=== PATIENT | female | born 1970 | race African-American/Black ===

== ENCOUNTER 2017-01-16 20:19 | Emergency (ER) | payer OTHER, MEDICAID ==
--- NOTE | 2017-01-16 23:01 | ER Document Report ---
ED General - General Chief Complaint: Psych Problem Stated Complaint: PSYCH EVAL Time Seen by Provider: 01/16/17 22:01 Notes: Patient is a 46-year-old female who presents with complaint of being on involuntary commitment paperwork. According to involuntary commitment paperwork she was evaluated by mobile crisis. She was agitated and made threats told mobile crisis and her daughter. Patient says that she takes her medications when she feels that it is necessary. She says she does this to stretch them out so she does not have to get them refilled as often. She currently is not agitated. She currently admits that she got frustrated. She said she was frustrated because she felt she was having to tell the same story over and over again. She denies being suicidal or homicidal. TRAVEL OUTSIDE OF THE [place] IN LAST 30 DAYS: No - Related Data Allergies/Adverse Reactions: morphine Adverse Reaction (Verified 01/17/17 00:30) Hallucinations Past Medical History - Social History Smoking Status: Never Smoker Frequency of alcohol use: None Drug Abuse: None Family History: Reviewed & Not Pertinent Patient has suicidal ideation: Yes Patient has homicidal ideation: Yes Renal/ Medical History: Denies: Hx Peritoneal Dialysis Psychiatric Medical History: Reports: Hx Bipolar Disorder, Hx Depression, Hx Schizophrenia Past Surgical History: Reports: Hx Tubal Ligation - Immunizations Hx Diphtheria, Pertussis, Tetanus Vaccination: No Review of Systems - Review of Systems Notes: My Normal Review Basic REVIEW OF SYSTEMS: CONSTITUTIONAL : Denies fever, chills, or sweats. Denies recent illness. EENT: Denies eye, ear, throat, or mouth pain or symptoms. Denies nasal or sinus congestion. RESPIRATORY: Denies cough, cold, or chest congestion. Denies shortness of breath, difficulty breathing, or wheezing. MUSCULOSKELETAL: Denies neck or back pain or joint pain or swelling. SKIN: Denies rash or skin lesions. NEUROLOGICAL: Denies altered mental status or loss of consciousness. Denies headache. Denies weakness or paralysis or loss of use of either side. Denies problems with gait or speech. Denies sensory or motor loss. PSYCHIATRIC: agitation and verbal aggression. ALL OTHER SYSTEMS REVIEWED AND NEGATIVE. Physical Exam - Vital signs Vitals: Temp Pulse Resp BP Pulse Ox 98.8 F 95 20 139/74 H 100 01/16/17 20:23 01/16/17 20:23 01/16/17 20:23 01/16/17 20:23 01/16/17 20:23 - Notes Notes: General Appearance: Well nourished, alert, cooperative, no acute distress, no obvious discomfort. Vitals: reviewed, See vital signs table. Head: no swelling or tenderness to the head Eyes: PERRL, EOMI, Conjuctiva clear Mouth: No decreasd moisture Lungs: No wheezing, No rales, No rhonci, No accessory muscle use, good air exchange bilaterally. Heart: Normal rate, Regular rythm, No murmur, no rub Abdomen: Normal BS, soft, No rigidity, No abdominal tenderness, No guarding, no rebound, no abdominal masses, no organomegaly Extremities: strength 5/5 in all extremities, good pulses in all extremities, no swelling or tenderness in the extremities, no edema. Skin: warm, dry, appropriate color, no rash Neuro: speech clear, oriented x 3, normal affect, responds appropriately to questions. Psych: currently calm. Course - Vital Signs Vital signs: Temp Pulse Resp BP Pulse Ox 97.9 F 78 15 112/74 99 01/17/17 04:11 01/17/17 04:11 01/17/17 04:11 01/17/17 04:11 01/17/17 04:11 - Laboratory Result Diagrams: 01/16/17 23:05 01/16/17 23:05 Laboratory results interpreted by me: 01/16/17 01/16/17 23:05 23:05 Seg Neutrophils % 41.1 L Lymphocytes % 51.0 H Carbon Dioxide 20 L Total Protein 6.1 L Salicylates < 1.0 L Acetaminophen < 10 L - EKG Interpretation by Me Additional EKG results interpreted by me: 01/16/17 23:11 EKG is reviewed and interpreted by me. EKG shows normal sinus rhythm with a rate of [address] segment elevation or depression. No ischemic T-wave inversions. No interval is slightly prolonged. QRS duration and QT intervals are within normal range. Old EKG for comparison is from May 08, 2016. - Transfer of Care Notes: 01/16/17 23:00 01/17/17 05:21 Patient is medically stable for psychiatric evaluation and placement. Patient is on involuntary commitment paperwork was filled out by the mobile crisis underwriting service representative. Discharge - Discharge Clinical Impression: Agitation Condition: Stable Disposition: PSYCH HOSP/UNIT
[2017-01-16 23:21] LABS: ABSOLUTE EOSINOPHILS # (AUTO) 0.2 10^3/uL (0.0-0.6); ABSOLUTE LYMPHOCYTES (AUTO) 4.2 10^3/uL (0.5-4.7); ABSOLUTE MONOCYTES (AUTO) 0.4 10^3/uL (0.1-1.4); ABSOLUTE NEUT (AUTO) 3.4 10^3/uL (1.7-8.2); BASOPHILS % (AUTO) 0.6 % (0-2); HEMATOCRIT 37.7 % (36.0-47.0); HEMOGLOBIN 12.5 g/dL (12.0-15.5); HGB HCT DIFFERENCE -0.2; MEAN CORPUSCULAR HEMOGLOBIN 30.3 pg (27.0-33.4); MEAN CORPUSCULAR HGB CONC 33.2 g/dL (32.0-36.0); MEAN CORPUSCULAR VOLUME 91 fl (80-97); MONOCYTES % (AUTO) 5.3 % (3-13); RED BLOOD COUNT 4.13 10^6/uL (3.72-5.28); RED CELL DISTRIBUTION WIDTH 13.2 % (11.5-14.0); SEGMENTED NEUTROPHILS % (AUTO) 41.1 % (42-78); WHITE BLOOD COUNT 8.2 10^3/uL (4.0-10.5)
[2017-01-16 23:34] LABS: ALANINE AMINOTRANSFERASE 28 U/L (9-52); ALBUMIN 3.9 g/dL (3.5-5.0); ALCOHOL 27 mg/dL (NONE DETECTED); ALKALINE PHOSPHATASE 44 U/L (38-126); ANION GAP 17 (5-19); ASPARTATE AMINO TRANSFERASE 16 U/L (14-36); BILIRUBIN,DIRECT 0.2 mg/dL (0.0-0.4); BILIRUBIN,TOTAL 0.2 mg/dL (0.2-1.3); BLOOD UREA NITROGEN 11 mg/dL (7-20); CALCIUM 9.3 mg/dL (8.4-10.2); CARBON DIOXIDE 20 mmol/L (22-30); CHLORIDE 107 mmol/L (98-107); GLUCOSE 96 mg/dL (75-110); POTASSIUM 3.6 mmol/L (3.6-5.0); SODIUM 143.6 mmol/L (137-145); TOTAL PROTEIN 6.1 g/dL (6.3-8.2)
[2017-01-17] MEDS ORDERED: ZIPRASIDONE MESYLATE INJ/PF 20 MG SDV IM ONE (08:44)
[2017-01-17] MEDS: ZIPRASIDONE HCL 20 MG CAPSULE PO SCH ×3 (09:00→18:32)
[2017-01-17] MEDS: DIVALPROEX SODIUM 500 MG TAB.SR.24H PO SCH ×2 (09:00→18:32)
--- NOTE | 2017-01-17 10:00 | ER Document Report ---
Doctor's Note Notes: 01/17/17 09:57 I have evaluated this pt. this am and she has no c/o at this time She feels all of her needs are being met and her physical exam is normal. She is awaiting disposition per mental health.
[2017-01-17 12:57] LABS: APPEARANCE,URINE CLEAR; BILIRUBIN,URINE NEGATIVE (NEGATIVE); GLUCOSE, URINE NEGATIVE (NEGATIVE); KETONES,URINE NEGATIVE (NEGATIVE); LEUKOCYTE ESTERASE,URINE NEGATIVE (NEGATIVE); NITRITE,URINE NEGATIVE (NEGATIVE); PROTEIN,URINE NEGATIVE (NEGATIVE); URINE SPECIFIC GRAVITY 1.004; UROBILINOGEN,URINE NEGATIVE mg/dL (<2.0)
[2017-01-17 13:17] LABS: URINE BARBITURATES SCREEN NEGATIVE; URINE METHADONE SCREEN NEGATIVE; URINE OPIATES LOW NEGATIVE; URINE PHENCYCLIDINE SCREEN NEGATIVE
--- NOTE | 2017-01-17 13:57 | PSYCHOLOGICAL NOTE ---
Psych Note - Psych Note Psych Note: Patient presents on ivc papers after allegedly getting into an argument with her daughter. Patient was uncooperative out front with triage but is cooperative with me at this time. Patient denies any SI or HI and states that this is all a mistake. Patient states that her daughter has taken over her home. Patient states that she has a diagnosis of bipolar and schizophrenia. She continued disclosed that [facility] getting into an argument with her daughter. She continued to disclose that " the doctor said I have to live alone." She states her daughter moved in on Thursday so noticed an was not invited. She continued to disclose that her daughter brought her grandchild with her she states she is not to be around other people and this is been a problem. She continued to disclose that she is supposed to take Depakote Cogentin however is been having difficulty transferring her Medicaid. She states it has been about a year but never received a card in the mail. Patient states she is never in a bad mood and denies being suicidal or homicidal. He states that it is her daughter that needs a psych evaluation not her. Patient became agitated multiple times during conversation however continue to engage with clinician. Patient stated she wanted something to eat clinician pointed out patient's breakfast sitting next to her. Patient stated the clinician can leave now because she is going to eat and through her napkin at clinician. After clinician left the room patient proceeded to throw all her food tray across the room and reported to [facility] staff that the clinician did it. When clinician asked why the patient threw her food patient stated because cold food was served to her. Patient is alert and orientated to person place time and circumstance. Mood is irritable with labile affect presenting hypomanic. Patient denies suicidal homicidal ideation. Patient denies auditory visual hallucinations; patient is not demonstrating any behavior that is congruent with responding to internal stimuli i.e. good eye contact organized and linear thought process. No delusions are noted. Thought processes organized and linear. Thought content is centered around blaming others. Eye contact was fair. Stool abilities appear to be within average range. Attention and concentration are fair. Insight judgment and impulse control are poor 295.90 (F25.0) schizoaffective bipolar type per history provided by patient Cluster B traits impression\\plan: Patient is recommended to continue under IVC. Patient is demonstrating poor impulse control with aggression. Patient is a danger to others. At this time is believed the patient has been not take prescribed because of the difficulties with transferring his current clinician notes patient mentioned to [facility] staff she was taking her medication every other day to stretch it out. Patient will be reevaluated. Dr. Mcmillan was consulted on the care and management of this patient; attending physician is in agreement with recommendations and disposition.
--- NOTE | 2017-01-17 17:48 | EKG REPORT ---
SEVERITY:- ABNORMAL ECG - SINUS RHYTHM FIRST DEGREE AV BLOCK : Confirmed by: Sharyn Trejo MD 17-Jan-2017 17:47:31
[2017-01-17] MEDS ORDERED: BENZTROPINE MESYLATE 1 MG TABLET PO SCH (22:00)
--- NOTE | 2017-01-18 09:49 | ER Document Report ---
Doctor's Note Notes: 01/18/17 09:49 I have evaluated this patient this am and has no c/o at this time. Feels all of their needs are being met and physical exam is normal. Awaiting dispositon per mental health. 01/18/17 15:30 Pt seen by mental Health and they are recommending outpatient management with follow-up at [facility]. We will provide her with a 7 day course of her prescription. Patient is pleasant and cooperative. No homicidal or suicidal ideation.
[2017-01-18] MEDS: ZIPRASIDONE HCL 20 MG CAPSULE PO SCH ×2 (10:24→14:34)
[2017-01-18] MEDS: DIVALPROEX SODIUM 500 MG TAB.SR.24H PO SCH (10:24)
--- NOTE | 2017-01-18 15:23 | ER Document Report ---
ED Psych Disorder / Suicide - General Information source: Patient, Relative - daughter who is her payee TRAVEL OUTSIDE OF THE [place] IN LAST 30 DAYS: No - HPI Patient complains to provider of: Other - manic Onset: Other Onset was: Gradual Suicide Risk Factors: Bipolar, Frightened friends/family, Lack of social support Situational problems related to: Other - medicaiton noncompliance Normal mood: Yes - slightly elevated, but calmer than initial presentaiton Associated symptoms: Normal affect, Normal mood, Manic Similar symptoms previously: Yes Recently seen / treated by doctor: No <JAMIL MARIE - Last Filed: 01/18/17 15:04> <JULIAN MALDONADO - Last Filed: 01/18/17 15:30> - General Chief Complaint: Psych Problem Stated Complaint: PSYCH EVAL Time Seen by Provider: 01/16/17 22:01 - HPI Notes: Patient is a 46 year old female who is under IVC at [facility]. Patient initially presented manic likely due to medication noncompliance, after an alleged argument with her daughter. There was a small amount of alcohol (27) in her toxicology, as well as subtherapeutic Valproic Acid (35). Patient this morning state she feels better. She states she feels she is slowing down. She states she has no thoughts of wanting to harm herself or anyone else. Patient states she would like to go home and take her medications. Patient's daughter, Yamil Villareal states: Daughter states the patient moved in about a week ago. She states that she has been "going off" about just about anything. Daughter provided numerous examples. She states she is diagnosed with Schizophrenia and Bipolar Disorder. Daughter states that the patient has gone through a lot in the past few months, to include homelessness. She states the patient has been off of her medications minimally since she moved back to [place] from [place] because she still has pills from her 30 day supply from [place]. Daughter states the precipitating incident was the patient calling the police on her because she had a light on in the bathroom. Daughter states the patient was so aggressive when the police arrived she was concerned they were going to treat her as an aggressive person and not an individual with MH issues. Daughter states she sees a pattern with the patient who goes off of her medications, ends up in the hospital, and gets out and does ok for a few days, then purchases some alcohol and repeat cycle. Patient is A&O. Mood is elevated with normal smiling affect. Patient denies suicidal/homicidal ideations, intent, plan, or means. Patient denies A/V H; delusions not noted. Thought processes were organized. Conversational speech was fast. Intellectual abilities were estimated within average range. Attention and focus were fair. Insight, judgment, and impulse control were poor- fair. 295.90 (F25.0) Schizoaffective bipolar type per history provided by patient Cluster B traits Unspecified Alcohol Abuse Patient is psychiatrically cleared and recommended for discharge. Patient is encouraged to take her medications as prescribed. Daughter reports her concerns are strictly related to medications. She states until the patient's medicaid card is "straightened out," (correct dates) and she can fill her prescriptions, she may not be able to financially pay for them. Daughter encouraged to seek out alternative resources, to include her [facility] as her Disability Liaison Officer was just visiting. [employer] has agreed to provide a cab ride home for the patient. Patient no longer meets criteria for IVC as she denies SI/HI, and presents as though she is better able to control her mood and reactions. Patient has been calm and appropriate throughout today, and has engaged in conversation with this clinician, staff, and her Disability Liaison Officer appropriately. I consulted with Dr. Mcmillan in regards to the care and management of this patient. (JAMIL MARIE) - Related Data Allergies/Adverse Reactions: morphine Adverse Reaction (Verified 01/17/17 00:30) Hallucinations Past Medical History - Social History Smoking Status: Never Smoker Chew tobacco use (# tins/day): No Frequency of alcohol use: Occasional Drug Abuse: None Family History: Reviewed & Not Pertinent Patient has suicidal ideation: No Patient has homicidal ideation: No Renal/ Medical History: Denies: Hx Peritoneal Dialysis Psychiatric Medical History: Reports: Hx Bipolar Disorder, Hx Depression, Hx Schizophrenia Past Surgical History: Reports: Hx Tubal Ligation - Immunizations Hx Diphtheria, Pertussis, Tetanus Vaccination: No <JAMIL MARIE - Last Filed: 01/18/17 15:04> Course - Laboratory Result Diagrams: 01/16/17 23:05 01/16/17 23:05 <JAMIL MARIE - Last Filed: 01/18/17 15:04> - Laboratory Result Diagrams: 01/16/17 23:05 01/16/17 23:05 <JULIAN MALDONADO - Last Filed: 01/18/17 15:30> - Vital Signs Vital signs: Temp Pulse Resp BP Pulse Ox 97.5 F 51 L 16 105/64 99 01/18/17 08:05 01/18/17 08:05 01/18/17 08:05 01/18/17 08:05 01/18/17 08:05 - Laboratory Laboratory results interpreted by me: 01/16/17 01/16/17 01/17/17 23:05 23:05 12:09 Seg Neutrophils % 41.1 L Lymphocytes % 51.0 H Carbon Dioxide 20 L Total Protein 6.1 L Salicylates < 1.0 L Acetaminophen < 10 L Valproic Acid 30.5 L Discharge <JAMIL MARIE - Last Filed: 01/18/17 15:04> <JULIAN MALDONADO E - Last Filed: 01/18/17 15:30> - Discharge Clinical Impression: Agitation, Bipolar 1 disorder Schizophrenia Qualifiers: Schizophrenia type: unspecified Qualified Code(s): F20.9 - Schizophrenia, unspecified Condition: Stable Disposition: HOME, SELF-CARE Additional Instructions: Bipolar Disorder Bipolar disorder is also called manic-depressive disorder. Depression alternates with brain hyperactivity called sung. Each phase lasts from several days to a few weeks. We don't know exactly what causes bipolar disorder , but it's treatable. During the "manic phase," you may feel elated and energetic. You may have racing thoughts, rapid speech, increased activity, and grandiose ideas. During this time, you may not realize how poor your judgement is. Inappropriate spending, drug abuse, excessive alcohol use, marriage problems, and irresponsible sexual behavior are common during the manic phase. During the "depressive phase," you might feel depressed, guilty, worthless , fatigued, and unable to concentrate. You might have thoughts of suicide. Good treatments are available for bipolar disorder. Parrott is a classic drug for bipolar disorder, and is still often useful. If the manic phase is very mild, an antidepressant alone can be prescribed. If the manic phase is very severe, an antipsychotic medicine (such as Haldol) may be needed. The treatment must be matched to your symptoms, so it's important to work closely with your psychiatric care provider. Contact your physician, the hospital emergency center, crisis line, or your counsellor if you are losing control or having self-destructive thoughts. Schizophrenia Schizophrenia is a chemical disorder that affects how the brain functions. The exact cause is unknown, but it tends to run in families. It is NOT caused by emotional trauma. Schizophrenia causes disordered thinking, including unusual beliefs and inability to "process" happenings around the patient. Patients with schizophrenia benefit greatly from medicine. These medicines are called antipsychotics. Never stop the medicine without the doctor 's approval. Counselling may help the patient deal with his disease. Schizophrenics require a very ordered environment. Stresses and sudden changes may bring out symptoms. Drugs and alcohol abuse may become problems. Contact the counsellor or crisis line if there are thoughts of suicide or of harming others, or if you become aware of unusual thoughts or beliefs Please follow up with a provider of your choice. Please take your medications as prescribed. You have been provided a list of resources who accept your insurance. Some of the providers, such as [facility] has walk-in options for you to be seen as early as 0900 tomorrow morning. Prescriptions: Benztropine Mesylate [Cogentin 1 mg Tablet] 1 tab PO DAILY #7 tab Divalproex Sodium [Depakote ER 500 mg Tab.sr] 500 mg PO Q12 #14 tab.sr.24h Ziprasidone HCl [Geodon 20 Mg Capsule] 20 mg PO TID #21 capsule Referrals: [facility] [Outside] - Follow up as needed
[2017-01-18 15:55] VITALS: BP 124/82
== END 2017-01-18 16:05 | disposition home or self-care (01) ==
LOC: ER 20:19
DX: R45.1 Restlessness and agitation (principal); F20.9 Schizophrenia, unspecified; F31.9 Bipolar disorder, unspecified; F10.10 Alcohol abuse, uncomplicated; Z88.6 Allergy status to analgesic agent; Z98.51 Tubal ligation status; Z91.14 Patient's other noncompliance with medication regimen
CPT/HCPCS: 93005; 99285; 36415; 80307 ×4; 84703; 85025; 80053; 81001; 80164; 93010; J3490

== ENCOUNTER 2017-01-31 23:06 | Emergency (ER) | payer MEDICAID, OTHER ==
[2017-01-31 23:53] LABS: ABSOLUTE BASOPHILS # (AUTO) 0.1 10^3/uL (0.0-0.2); ABSOLUTE EOSINOPHILS # (AUTO) 0.2 10^3/uL (0.0-0.6); ABSOLUTE LYMPHOCYTES (AUTO) 3.8 10^3/uL (0.5-4.7); ABSOLUTE MONOCYTES (AUTO) 0.5 10^3/uL (0.1-1.4); ABSOLUTE NEUT (AUTO) 2.9 10^3/uL (1.7-8.2); BASOPHILS % (AUTO) 0.9 % (0-2); EOSINOPHILS % (AUTO) 2.8 % (0-6); HEMATOCRIT 41.2 % (36.0-47.0); HEMOGLOBIN 13.8 g/dL (12.0-15.5); HGB HCT DIFFERENCE 0.2; LYMPHOCYTES % (AUTO) 51.4 % (13-45); MEAN CORPUSCULAR HEMOGLOBIN 30.4 pg (27.0-33.4); MEAN CORPUSCULAR HGB CONC 33.5 g/dL (32.0-36.0); MEAN CORPUSCULAR VOLUME 91 fl (80-97); MONOCYTES % (AUTO) 6.4 % (3-13); RED BLOOD COUNT 4.53 10^6/uL (3.72-5.28); RED CELL DISTRIBUTION WIDTH 13.4 % (11.5-14.0); SEGMENTED NEUTROPHILS % (AUTO) 38.5 % (42-78); WHITE BLOOD COUNT 7.4 10^3/uL (4.0-10.5)
[2017-02-01 00:05] LABS: ALANINE AMINOTRANSFERASE 33 U/L (9-52); ALBUMIN 4.4 g/dL (3.5-5.0); ALCOHOL 152 mg/dL (NONE DETECTED); ALKALINE PHOSPHATASE 46 U/L (38-126); ANION GAP 16 (5-19); ASPARTATE AMINO TRANSFERASE 39 U/L (14-36); BILIRUBIN,DIRECT 0.2 mg/dL (0.0-0.4); BILIRUBIN,TOTAL 0.5 mg/dL (0.2-1.3); BLOOD UREA NITROGEN 14 mg/dL (7-20); CALCIUM 8.6 mg/dL (8.4-10.2); CARBON DIOXIDE 25 mmol/L (22-30); CHLORIDE 106 mmol/L (98-107); CREATININE RESULT 0.62 mg/dL (0.52-1.25); GLUCOSE 100 mg/dL (75-110); POTASSIUM 3.7 mmol/L (3.6-5.0); SODIUM 146.7 mmol/L (137-145); TOTAL PROTEIN 7.4 g/dL (6.3-8.2)
[2017-02-01 00:21] LABS: APPEARANCE,URINE CLEAR; BILIRUBIN,URINE NEGATIVE (NEGATIVE); GLUCOSE, URINE NEGATIVE (NEGATIVE); KETONES,URINE NEGATIVE (NEGATIVE); LEUKOCYTE ESTERASE,URINE TRACE (NEGATIVE); NITRITE,URINE NEGATIVE (NEGATIVE); PROTEIN,URINE NEGATIVE (NEGATIVE); URINE SPECIFIC GRAVITY 1.012; UROBILINOGEN,URINE NEGATIVE mg/dL (<2.0)
[2017-02-01 00:34] LABS: URINE BARBITURATES SCREEN NEGATIVE; URINE METHADONE SCREEN NEGATIVE; URINE OPIATES LOW NEGATIVE; URINE PHENCYCLIDINE SCREEN NEGATIVE
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
--- NOTE | 2017-02-01 09:24 | EKG REPORT ---
SEVERITY:- ABNORMAL ECG - SINUS RHYTHM FIRST DEGREE AV BLOCK : Confirmed by: Geoavnna Daniel 01-Feb-2017 09:23:38
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
[2017-02-01 11:43] VITALS: BP 122/74
== END 2017-02-01 11:40 | disposition home or self-care (01) ==
LOC: ER 23:06
DX: R45.851 Suicidal ideations (principal); F31.81 Bipolar II disorder; Z72.811 Adult antisocial behavior; F10.929 Alcohol use, unspecified with intoxication, unspecified; F17.200 Nicotine dependence, unspecified, uncomplicated
CPT/HCPCS: 36415; 80053; 80164; 80307; 81001; 84703; 85025; 93005; 93010; 99284

== ENCOUNTER 2017-08-09 22:58 | Emergency (ER) | payer MEDICAID ==
[2017-08-09] MEDS ORDERED: LORAZEPAM INJ 2 MG/1 ML VIAL IV ONE (23:26)
--- NOTE | 2017-08-09 23:26 | ER Document Report ---
ED General - General Stated Complaint: CHEST PAIN Time Seen by Provider: 08/09/17 23:04 Notes: Patient is a 47 year old female who presents to the ED complaining of chest wall pain and anxiety attack this evening. She states she has been having alot of stress surrounding her family life and has adopted more responsibility with caring for her grandchildren then she was planning for. She states this evening she was upset and when she arrived to he daughters house she had an anxiety attack after hearing news of a sick family member. She does admit to superficial chest pain that is tender to touch and reproducible without trauma. She states that has improved and is positional, 1/5 in severity if at all present. TRAVEL OUTSIDE OF THE [place] IN LAST 30 DAYS: No - Related Data Allergies/Adverse Reactions: morphine Adverse Reaction (Verified 01/31/17 23:18) Hallucinations Past Medical History - Social History Smoking Status: Current Every Day Smoker Family History: Reviewed & Not Pertinent Renal/ Medical History: Denies: Hx Peritoneal Dialysis Psychiatric Medical History: Reports: Hx Bipolar Disorder, Hx Depression, Hx Schizophrenia Past Surgical History: Reports: Hx Tubal Ligation - Immunizations Hx Diphtheria, Pertussis, Tetanus Vaccination: No Review of Systems - Review of Systems Constitutional: No symptoms reported Cardiovascular: See HPI Respiratory: See HPI Gastrointestinal: No symptoms reported Neurological/Psychological: See HPI -: Yes All other systems reviewed and negative Physical Exam - Vital signs Vitals: Temp 98 F 08/09/17 22:58 - Notes Notes: PHYSICAL EXAM GENERAL: Alert, interacts well. NECK: Full range of motion. Supple. Trachea midline. LUNGS: Clear to auscultation bilaterally, no wheezes, rales, or rhonchi. No respiratory distress. HEART: Nonspecific chest wall pain reproducible to palpation regular rate and rhythm. No murmurs, gallops, or rubs. ABDOMEN: Soft, nondistended, nontender. No guarding, rebound, or rigidity.. Bowel sounds present in all 4 quadrants. EXTREMITIES: Moves all 4 extremities spontaneously. No edema, radial and dorsalis pedis pulses 2/4 bilaterally. No cyanosis. NEUROLOGICAL: Alert and oriented x4. Normal speech. PSYCH: Normal affect, normal mood. SKIN: Warm, dry, normal turgor. No rashes or lesions noted. Course - Re-evaluation Re-evalutation: 08/09/17 23:34 Patient is a 47-year-old female who presents with chest wall pain after an anxiety attack earlier this evening. States she is feeling much better now. Patient is very well in appearance, vitals within normal limits. Low clinical suspicion for ACS given clinical history, exam, EKG without ST elevations or depressions, and negative initial troponin. HEART score less than or equal to 3. PE also seems unlikely given clinical history, absence of tachycardia or dyspnea. Well's score of 0. CXR without evidence of pneumothorax or pneumonia. No widened mediastinum. Aortic dissection also seems unlikely given history, symmetric pulses, CXR, and vitals. At this time will discharge with return precautions and follow-up recommendations. Verbal discharge instructions given a the bedside and opportunity for questions given. Medication warnings reviewed. Patient is in agreement with this plan and has verbalized understanding of return precautions and the need for primary care follow-up in the next 24-72 hours. - Vital Signs Vital signs: Temp Pulse Resp BP Pulse Ox 98 F 15 109/60 96 08/09/17 22:58 08/10/17 01:01 08/10/17 01:00 08/10/17 01:01 - Laboratory Result Diagrams: 08/09/17 23:05 08/09/17 23:05 Laboratory results interpreted by me: 08/09/17 08/09/17 23:05 23:05 WBC 11.7 H Carbon Dioxide 17 L Direct Bilirubin 0.5 H - Diagnostic Test Radiology reviewed: Image reviewed, Reports reviewed - EKG Interpretation by Me EKG shows normal: Sinus rhythm Rate: Normal Rhythm: NSR When compared to previous EKG there are: Previous EKG unavailable Discharge - Discharge Clinical Impression: Anxiety, Chest wall pain Condition: Good Disposition: HOME, SELF-CARE Instructions: Chest Wall Pain ([facility]) Additional Instructions: Please take you medications as directed and follow up with a mental health provider listed with this discharge paperwork Prescriptions: Benztropine Mesylate [Cogentin 1 mg Tablet] 1 tab PO DAILY #7 tab Divalproex Sodium [Depakote] 500 mg PO BID #14 tablet. Ziprasidone HCl [Geodon 20 Mg Capsule] 20 mg PO TID #21 capsule Referrals: [facility] [Provider Group] - 08/10/17
[2017-08-09 23:32] LABS: ABSOLUTE EOSINOPHILS # (AUTO) 0.1 10^3/uL (0.0-0.6); ABSOLUTE MONOCYTES (AUTO) 0.5 10^3/uL (0.1-1.4); BASOPHILS % (AUTO) 0.3 % (0-2); EOSINOPHILS % (AUTO) 0.9 % (0-6); HEMATOCRIT 39.6 % (36.0-47.0); HEMOGLOBIN 13.4 g/dL (12.0-15.5); HGB HCT DIFFERENCE 0.6; LYMPHOCYTES % (AUTO) 34.3 % (13-45); MEAN CORPUSCULAR HEMOGLOBIN 30.5 pg (27.0-33.4); MEAN CORPUSCULAR HGB CONC 33.9 g/dL (32.0-36.0); MEAN CORPUSCULAR VOLUME 90 fl (80-97); MONOCYTES % (AUTO) 4.7 % (3-13); RED CELL DISTRIBUTION WIDTH 13.6 % (11.5-14.0); SEGMENTED NEUTROPHILS % (AUTO) 59.8 % (42-78); WHITE BLOOD COUNT 11.7 10^3/uL (4.0-10.5)
[2017-08-09 23:43] LABS: ALANINE AMINOTRANSFERASE 29 U/L (9-52); ALBUMIN 4.5 g/dL (3.5-5.0); ALKALINE PHOSPHATASE 45 U/L (38-126); ANION GAP 16 (5-19); ASPARTATE AMINO TRANSFERASE 21 U/L (14-36); BILIRUBIN,DIRECT 0.5 mg/dL (0.0-0.4); BILIRUBIN,TOTAL 0.6 mg/dL (0.2-1.3); BLOOD UREA NITROGEN 9 mg/dL (7-20); CALCIUM 9.1 mg/dL (8.4-10.2); CARBON DIOXIDE 17 mmol/L (22-30); CHLORIDE 106 mmol/L (98-107); CREATINE KINASE 100 U/L (30-135); CREATININE RESULT 0.55 mg/dL (0.52-1.25); GLUCOSE 95 mg/dL (75-110); POTASSIUM 3.8 mmol/L (3.6-5.0); SODIUM 138.8 mmol/L (137-145); TOTAL PROTEIN 7.3 g/dL (6.3-8.2)
[2017-08-09 23:55] LABS: CREATINE KINASE MB 1.55 ng/mL (<4.55)
[2017-08-10 00:01] LABS: TROPONIN I < 0.012 ng/mL
--- NOTE | 2017-08-10 01:14 | RADIOLOGY REPORT (SQ) ---
EXAM DESCRIPTION: CHEST SINGLE VIEW CLINICAL HISTORY: 47 years, Female, chest pain COMPARISON: 05/08/2016 LIMITATIONS: None. FINDINGS: Adequate lung volumes, clear parenchyma, normal cardiac silhouette, and intact bony thorax. IMPRESSION: Normal chest radiograph. 2011 [facility] [employer]- All Rights Reserved
[2017-08-10 01:20] VITALS: BP 109/60
--- NOTE | 2017-08-10 08:43 | EKG REPORT ---
SEVERITY:- NORMAL ECG - SINUS RHYTHM : Confirmed by: Geovanna Daniel 10-Aug-2017 08:43:01
== END 2017-08-10 01:58 | disposition home or self-care (01) ==
LOC: ER 22:58
DX: F41.9 Anxiety disorder, unspecified (principal); R07.89 Other chest pain; F17.200 Nicotine dependence, unspecified, uncomplicated
CPT/HCPCS: 93005; 99285; 96374; 36415; 82553; 82550; 85025; 80053; 84484; 71010; 93010; J2060

== ENCOUNTER 2017-10-14 00:18 | Emergency (ER) | payer MEDICAID, OTHER ==
[2017-10-14 01:55] LABS: ABSOLUTE EOSINOPHILS # (AUTO) 0.1 10^3/uL (0.0-0.6); ABSOLUTE LYMPHOCYTES (AUTO) 3.7 10^3/uL (0.5-4.7); ABSOLUTE MONOCYTES (AUTO) 0.4 10^3/uL (0.1-1.4); ABSOLUTE NEUT (AUTO) 2.6 10^3/uL (1.7-8.2); BASOPHILS % (AUTO) 0.6 % (0-2); EOSINOPHILS % (AUTO) 1.8 % (0-6); HEMATOCRIT 41.8 % (36.0-47.0); LYMPHOCYTES % (AUTO) 53.7 % (13-45); MEAN CORPUSCULAR HEMOGLOBIN 30.9 pg (27.0-33.4); MEAN CORPUSCULAR HGB CONC 33.6 g/dL (32.0-36.0); MEAN CORPUSCULAR VOLUME 92 fl (80-97); MONOCYTES % (AUTO) 6.2 % (3-13); PLATELET COUNT 175 10^3/uL (150-450); RED BLOOD COUNT 4.55 10^6/uL (3.72-5.28); RED CELL DISTRIBUTION WIDTH 12.9 % (11.5-14.0); SEGMENTED NEUTROPHILS % (AUTO) 37.7 % (42-78); TOTAL CELLS COUNTED % (AUTO) 100 %
[2017-10-14 02:11] LABS: ALANINE AMINOTRANSFERASE 29 U/L (9-52); ALBUMIN 4.6 g/dL (3.5-5.0); ALCOHOL 102 mg/dL (NONE DETECTED); ALKALINE PHOSPHATASE 39 U/L (38-126); ANION GAP 15 (5-19); ASPARTATE AMINO TRANSFERASE 22 U/L (14-36); BILIRUBIN,DIRECT 0.3 mg/dL (0.0-0.4); BILIRUBIN,TOTAL 0.3 mg/dL (0.2-1.3); BLOOD UREA NITROGEN 11 mg/dL (7-20); CARBON DIOXIDE 23 mmol/L (22-30); CHLORIDE 109 mmol/L (98-107); GLUCOSE 102 mg/dL (75-110); POTASSIUM 3.9 mmol/L (3.6-5.0); SODIUM 147.1 mmol/L (137-145); TOTAL PROTEIN 7.4 g/dL (6.3-8.2)
[2017-10-14 02:14] LABS: ACETAMINOPHEN < 10 ug/mL (10-30); SALICYLATE < 1.0 mg/dL (2.0-20.0)
[2017-10-14 02:20] LABS: APPEARANCE,URINE SLIGHTLY-CLOUDY; BILIRUBIN,URINE NEGATIVE (NEGATIVE); COLOR,URINE YELLOW; GLUCOSE, URINE NEGATIVE (NEGATIVE); KETONES,URINE NEGATIVE (NEGATIVE); LEUKOCYTE ESTERASE,URINE NEGATIVE (NEGATIVE); NITRITE,URINE NEGATIVE (NEGATIVE); PROTEIN,URINE NEGATIVE (NEGATIVE); URINE SPECIFIC GRAVITY 1.012; UROBILINOGEN,URINE NEGATIVE mg/dL (<2.0)
[2017-10-14 02:23] LABS: URINE AMPHETAMINES SCREEN NEGATIVE; URINE BARBITURATES SCREEN NEGATIVE; URINE BENZODIAZEPINES SCREEN NEGATIVE; URINE COCAINE SCREEN NEGATIVE; URINE MARIJUANA (THC) SCREEN UNCONFIRMED POSITIVE; URINE METHADONE SCREEN NEGATIVE; URINE PHENCYCLIDINE SCREEN NEGATIVE
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
--- NOTE | 2017-10-14 09:31 | EKG REPORT ---
SEVERITY:- ABNORMAL ECG - SINUS RHYTHM FIRST DEGREE AV BLOCK ABNRM R PROG, CONSIDER ASMI OR LEAD PLACEMENT : Confirmed by: Geovanna Daniel 14-Oct-2017 09:31:02
--- NOTE | 2017-10-14 10:12 | ER Document Report ---
Doctor's Note Notes: 10/14/17 10:11 Patient hemodynamically stable and in no distress at this time. She is medically cleared for discharge. The patient's labs are stable. I discussed case with the psychology team and they have cleared her for discharge for outpatient counseling. 10/14/17 10:12
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
[2017-10-14 11:08] VITALS: BP 131/72
== END 2017-10-14 11:07 | disposition home or self-care (01) ==
LOC: ER 00:18
DX: F25.0 Schizoaffective disorder, bipolar type (principal); F10.10 Alcohol abuse, uncomplicated; R45.851 Suicidal ideations; R45.850 Homicidal ideations; Z98.51 Tubal ligation status; Z88.6 Allergy status to analgesic agent
CPT/HCPCS: 36415; 80053; 80307; 81001; 84703; 85025; 93005; 93010; 99285

== ENCOUNTER 2019-01-23 19:54 | Observation (INO) | payer MEDICAID, OTHER ==
--- NOTE | 2019-01-23 20:41 | ER Document Report ---
ED Cardiac - General Chief Complaint: Chest Pain Stated Complaint: CHEST PAINS Time Seen by Provider: 01/23/19 20:09 Mode of Arrival: Medic Information source: Patient TRAVEL OUTSIDE OF THE [place] IN LAST 30 DAYS: No - HPI Notes: Patient is a 48-year-old female with a history of bipolar and schizophrenia who presents to the emergency today with a chief complaint of chest pain. Patient states that around 1500 this afternoon she developed a sudden onset of midsternal chest pain while she was cleaning. Patient states that she was mopping her floors. Patient states the pain was non radiating and felt like a tingling sharp pain. Patient states at that time the chest pain developed she did feel short of breath. Patient states that this did last around 3 hours in duration. Patient states that she has been extremely stressed and that she was left to babysit 2 children today including an . Patient states she has told her family members she is not allowed to babysit due to her mental illness, despite this, they left the children with her. Patient states that at the time of the chest pain she was upset and yelling at the kids. Patient states as she raised her voice and yelled this made the chest pain worse. Patient reports she has also had a clear productive cough over the past week. Denies fever. Patient did receive 324 of aspirin and 3 sublingual nitros with EMS. Patient states that did help with her discomfort. She denies dizziness or feeling of passing out. - Related Data Allergies/Adverse Reactions: morphine Adverse Reaction (Verified 01/31/17 23:18) Hallucinations Past Medical History - General Information source: Patient - Social History Smoking Status: Current Every Day Smoker Cigarette use (# per day): Yes - 1 ppd Chew tobacco use (# tins/day): No Smoking Education Provided: Yes Frequency of alcohol use: Social Drug Abuse: None Lives with: Family Family History: Reviewed & Not Pertinent Patient has suicidal ideation: No Patient has homicidal ideation: No - Medical History Medical History: Negative - Past Medical History Cardiac Medical History: Reports: None Pulmonary Medical History: Reports: None EENT Medical History: Reports: None Neurological Medical History: Reports: None Endocrine Medical History: Reports: None Renal/ Medical History: Reports: None. Denies: Hx Peritoneal Dialysis Malignancy Medical History: Reports: None GI Medical History: Reports: None Musculoskeletal Medical History: Reports None Skin Medical History: Reports None Psychiatric Medical History: Reports: Hx Bipolar Disorder, Hx Depression, Hx Schizophrenia Traumatic Medical History: Reports: None Infectious Medical History: Reports: None Surgical Hx: Negative Past Surgical History: Reports: None, Hx Tubal Ligation - Immunizations Hx Diphtheria, Pertussis, Tetanus Vaccination: No Review of Systems - Review of Systems Constitutional: No symptoms reported EENT: No symptoms reported Cardiovascular: See HPI Respiratory: See HPI Gastrointestinal: No symptoms reported Genitourinary: No symptoms reported Female Genitourinary: No symptoms reported Musculoskeletal: No symptoms reported Skin: No symptoms reported Hematologic/Lymphatic: No symptoms reported Neurological/Psychological: No symptoms reported Physical Exam - Vital signs Vitals: Resp Pulse Ox 15 99 01/23/19 20:00 01/23/19 20:00 - Notes Notes: GENERAL: Well-appearing, well-nourished and in no acute distress. HEAD: Atraumatic, normocephalic. EYES: Pupils equal round and reactive to light, extraocular movements intact, sclera anicteric, conjunctiva are normal. ENT: Moist mucous membranes. NECK: Normal range of motion, supple without lymphadenopathy or JVD. LUNGS: Breath sounds clear to auscultation bilaterally and equal. No wheezes rales or rhonchi. HEART: Regular rate and rhythm without murmurs, rubs or gallops. ABDOMEN: Soft, nontender, normoactive bowel sounds. No guarding, no rebound. No masses appreciated. EXTREMITIES: Normal range of motion, no pitting or edema. No clubbing or cyanosis. NEUROLOGICAL: Cranial nerves II through XII grossly intact. Normal speech, normal gait. PSYCH: Normal mood, normal affect. SKIN: Warm, Dry, normal turgor, no rashes or lesions noted. Course - Re-evaluation Re-evalutation: 01/23/19 20:45 Upon initial assessment patient is resting comfortably on stretcher and in no acute distress. Patient originally had stated her chest pain is now gone but at the end evaluation she states "well maybe I still have some discomfort," rating it a 3 out of 5. Will obtain chest pain work-up and reevaluate. Chest pain is atypical. Heart score 2. 01/23/19 21:33 Her potassium level was found to be 2.6. Reassessing patient she states that she has had 5-6 episodes of diarrhea per day for the past month. Patient states she has been drinking an adequate amount of fluid. Patient denies abdominal pain. 01/23/19 21:55 Patient's case discussed with Dr. Sotelo my attending physician who agrees with the replacement of potassium as well as magnesium and consult for admission. She does have a borderline prolonged QT interval at 488. Will consult for adm ission. 01/23/19 22:02 Discussed patient case with Dr. Sims who will admit for observation. Patient made aware and is in agreement with staying in the hospital. - Vital Signs Vital signs: Temp Pulse Resp BP Pulse Ox 98.2 F 16 124/79 99 01/23/19 20:08 01/23/19 21:12 01/23/19 20:03 01/23/19 21:12 - Laboratory Result Diagrams: 01/23/19 20:04 01/23/19 20:04 Laboratory results interpreted by me: 01/23/19 20:04 Potassium 2.6 L* Carbon Dioxide 19 L BUN 5 L - EKG Interpretation by Me Additional EKG results interpreted by me: 01/23/19 EKG shows a tachycardia with a rate of 101. Patient has a normal axis deviation. Patient's QTC is slightly prolonged at 488. There are no ST segment changes in consecutive leads or T wave inversions. Discharge - Discharge Clinical Impression: Hypokalemia Diarrhea Qualifiers: Diarrhea type: unspecified type Qualified Code(s): R19.7 - Diarrhea, unspecified Chest pain Qualifiers: Chest pain type: unspecified Qualified Code(s): R07.9 - Chest pain, unspecified Condition: Stable Disposition: ADMITTED OBSERVATION Admitting Provider: Levi (Hospitalist) Unit Admitted: Telemetry
[2019-01-23 20:49] LABS: ABSOLUTE LYMPHOCYTES (AUTO) 2.9 10^3/uL (0.5-4.7); ABSOLUTE MONOCYTES (AUTO) 0.4 10^3/uL (0.1-1.4); ABSOLUTE NEUT (AUTO) 3.5 10^3/uL (1.7-8.2); BASOPHILS % (AUTO) 0.4 % (0-2); EOSINOPHILS % (AUTO) 0.6 % (0-6); HEMATOCRIT 44.6 % (36.0-47.0); HEMOGLOBIN 14.9 g/dL (12.0-15.5); LYMPHOCYTES % (AUTO) 42.3 % (13-45); MEAN CORPUSCULAR HEMOGLOBIN 30.2 pg (27.0-33.4); MEAN CORPUSCULAR HGB CONC 33.4 g/dL (32.0-36.0); MEAN CORPUSCULAR VOLUME 91 fl (80-97); MONOCYTES % (AUTO) 5.7 % (3-13); PLATELET COUNT 183 10^3/uL (150-450); RED BLOOD COUNT 4.93 10^6/uL (3.72-5.28); RED CELL DISTRIBUTION WIDTH 13.8 % (11.5-14.0); TOTAL CELLS COUNTED % (AUTO) 100 %; WHITE BLOOD COUNT 6.8 10^3/uL (4.0-10.5)
[2019-01-23 21:14] LABS: ALANINE AMINOTRANSFERASE 31 U/L (9-52); ALBUMIN 4.9 g/dL (3.5-5.0); ALKALINE PHOSPHATASE 72 U/L (38-126); ANION GAP 19 (5-19); ASPARTATE AMINO TRANSFERASE 28 U/L (14-36); BILIRUBIN,DIRECT 0.4 mg/dL (0.0-0.4); BILIRUBIN,TOTAL 0.4 mg/dL (0.2-1.3); BLOOD UREA NITROGEN 5 mg/dL (7-20); CALCIUM 10.2 mg/dL (8.4-10.2); CARBON DIOXIDE 19 mmol/L (22-30); CHLORIDE 103 mmol/L (98-107); GLUCOSE 101 mg/dL (75-110); TOTAL PROTEIN 7.8 g/dL (6.3-8.2)
[2019-01-23 21:24] LABS: POTASSIUM 2.6 mmol/L (3.6-5.0)
--- NOTE | 2019-01-23 21:34 | RADIOLOGY REPORT (SQ) ---
EXAM DESCRIPTION: XR CHEST 1 VIEW COMPLETED DATE/TME: 01/23/2019 20:40 CLINICAL HISTORY: 48 years, Female, shortness of breath, chest pain COMPARISON: None. NUMBER OF VIEWS: TECHNIQUE: LIMITATIONS: None. FINDINGS: No evidence of pulmonary infiltrate or pleural effusion. The heart and mediastinum are unremarkable. Pulmonary vascularity appears normal. IMPRESSION: No acute finding. copyright 2010 [employer]- All Rights Reserved
[2019-01-23] MEDS ORDERED: POTASSIUM CHLORIDE 10 MEQ CAPSULE.ER PO ONE (21:41)
[2019-01-23] MEDS ORDERED: MAG HYDROX/AL HYDROX/SIMETH SUSP 30 ML UDCUP PO PRN (22:04)
[2019-01-23] MEDS ORDERED: ACETAMINOPHEN 325 MG TABLET PO PRN (22:04)
[2019-01-23] MEDS ORDERED: NITROGLYCERIN 0.4 MG/TAB 25 TAB/BOTTLE SL PRN (22:04)
[2019-01-23] MEDS ORDERED: BENZTROPINE MESYLATE 1 MG TABLET PO SCH (22:15)
[2019-01-23] MEDS ORDERED: DIVALPROEX SODIUM 500 MG TAB.SR.24H PO SCH (23:00)
[2019-01-23] MEDS: ATORVASTATIN CALCIUM 40 MG TABLET PO SCH (23:08)
[2019-01-23] MEDS: BENZTROPINE MESYLATE 1 MG TABLET PO SCH (23:08)
[2019-01-23] MEDS: DIVALPROEX SODIUM 500 MG TAB.SR.24H PO SCH (23:08)
[2019-01-23] MEDS: ZIPRASIDONE HCL 20 MG CAPSULE PO SCH (23:08)
[2019-01-23] MEDS: MAGNESIUM SULFATE/D5W 1 GM/100 ML RTUPB IV SCH (23:21)
[2019-01-23] MEDS: POTASSI CL 20 MEQ/50 ML RIDER 20 MEQ/50 ML RTUPB IV SCH (23:21)
[2019-01-24] MEDS ORDERED: POTASSIUM CHLORIDE 10 MEQ CAPSULE.ER PO ONE
--- NOTE | 2019-01-24 00:05 | EKG REPORT ---
SEVERITY:- BORDERLINE ECG - SINUS TACHYCARDIA BORDERLINE PROLONGED QT INTERVAL : Confirmed by: Geovanna Daniel 24-Jan-2019 00:04:42
[2019-01-24] MEDS ORDERED: DIPHENHYDRAMINE HCL 50 MG/ML VIAL ONE (00:07)
[2019-01-24] MEDS ORDERED: LORAZEPAM INJ 2 MG/1 ML VIAL ONE (00:07)
[2019-01-24] MEDS ORDERED: DIPHENHYDRAMINE HCL 50 MG/ML VIAL IV ONE (00:11)
[2019-01-24] MEDS ORDERED: LORAZEPAM INJ 2 MG/1 ML VIAL IV ONE (00:11)
[2019-01-24] MEDS ORDERED: LITHIUM CARBONATE 300 MG CAPSULE ONE (01:26)
[2019-01-24] MEDS: LITHIUM CARBONATE 300 MG CAPSULE PO SCH ×3 (01:28→21:15)
[2019-01-24] MEDS ORDERED: LORAZEPAM INJ 2 MG/1 ML VIAL IV PRN (05:45)
--- NOTE | 2019-01-24 05:45 | PDOC H&P ---
History of Present Illness Admission Date/PCP: 01/23/19 22:09 Patient complains of: Chest pain History of Present Illness: KEESHA BARONE is a 48 year old female with a past medical history of schizophrenia, bipolar and tobacco dependence. She presents to the emergency room with chest pain for which she is only vaguely able to elaborate upon however is extraordinarily agitated and angry. Her her bed and bedside table is organized and is attempting to Quote from the Bible. She states her family is preventing her from getting help and that is why she is here. She feels angry and that she will kill someone. She she denies a targeted victim but admits to having previous homicidal thoughts several years ago requiring inpatient psychiatric hospitalization in [place]. She denies recent change in medication regiment. Immediately after this conversation the patient becomes irate but agrees to treatment. Her work-up reveals a prolonged QT interval she receives Ativan 2 mg IV, Benadryl 50 IV and lithium 600mg resulting in adequate sedation. Past Medical History Pulmonary Medical History: Reports: None EENT Medical History: Reports: None Neurological Medical History: Reports: None Endocrine Medical History: Reports: None Renal/ Medical History: Reports: None Malignancy Medical History: Reports: None GI Medical History: Reports: None Musculoskeltal Medical History: Reports: None Skin Medical History: Reports: None Psychiatric Medical History: Reports: Bipolar Disorder, Depression, Schizoaffective Disorder, Tobacco Dependency Traumatic Medical History: Reports: None Infectious Medical History: Reports: None Past Surgical History Past Surgical History: Reports: Tubal Ligation Social History Information Source: Patient Lives with: Family Smoking Status: Current Every Day Smoker Frequency of Alcohol Use: None Hx Recreational Drug Use: No Drugs: None Hx Prescription Drug Abuse: No - Advance Directive Resuscitation Status: Full Code Family History Family History: Hypertension Parental Family History Reviewed: Yes Children Family History Reviewed: Yes Sibling(s) Family History Reviewed.: Yes Medication/Allergy Home Medications: Benztropine Mesylate [Cogentin 1 mg Tablet] 1 mg PO QHS 05/12/16 Divalproex Sodium [Depakote] 500 mg PO BID 05/12/16 Ziprasidone HCl [Geodon 20 mg Capsule] 20 mg PO TID 05/12/16 Benztropine Mesylate [Cogentin 1 mg Tablet] 1 tab PO DAILY #7 tab 01/18/17 Divalproex Sodium [Depakote ER 500 mg Tab.sr] 500 mg PO Q12 #14 tab.sr.24h 01/18/17 Ziprasidone HCl [Geodon 20 Mg Capsule] 20 mg PO TID #21 capsule 01/18/17 Benztropine Mesylate [Cogentin 1 mg Tablet] 1 tab PO DAILY #7 tab 08/10/17 Divalproex Sodium [Depakote] 500 mg PO BID #14 tablet. 08/10/17 Ziprasidone HCl [Geodon 20 Mg Capsule] 20 mg PO TID #21 capsule 08/10/17 Allergies/Adverse Reactions: morphine Adverse Reaction (Verified 01/31/17 23:18) Hallucinations Review of Systems ROS unobtainable: Due to mental status Physical Exam Vital Signs: Temp Pulse Resp BP Pulse Ox 97.5 F 55 L 18 122/78 100 01/24/19 04:00 01/24/19 04:00 01/24/19 04:00 01/24/19 04:00 01/24/19 04:00 Intake & Output 01/22/19 01/23/19 01/24/19 11:59 11:59 11:59 Weight 67.5 kg General appearance: PRESENT: severe distress, well-developed, well-nourished. ABSENT: cooperative Head exam: PRESENT: atraumatic, normocephalic Eye exam: PRESENT: conjunctiva pink, EOMI, PERRLA. ABSENT: scleral icterus Ear exam: PRESENT: normal external ear exam Mouth exam: PRESENT: moist, tongue midline Neck exam: ABSENT: carotid bruit, JVD, lymphadenopathy, thyromegaly Respiratory exam: PRESENT: clear to auscultation naty. ABSENT: rales, rhonchi, wheezes Cardiovascular exam: PRESENT: RRR. ABSENT: diastolic murmur, rubs, systolic murmur Pulses: PRESENT: normal dorsalis pedis pul Vascular exam: PRESENT: normal capillary refill GI/Abdominal exam: PRESENT: normal bowel sounds, soft. ABSENT: distended, guarding, mass, organolmegaly, rebound, tenderness Rectal exam: PRESENT: deferred Extremities exam: PRESENT: full ROM. ABSENT: calf tenderness, clubbing, pedal edema Neurological exam: PRESENT: alert, awake, oriented to person, oriented to place, oriented to time, oriented to situation, CN II-XII grossly intact. ABSENT: motor sensory deficit Psychiatric exam: PRESENT: appropriate affect, normal mood. ABSENT: homicidal ideation, suicidal ideation Focused psych exam: PRESENT: delusional, internal stimuli, paranoid, pressured speech, psychomotor agitation, restlessness Skin exam: PRESENT: dry, intact, warm. ABSENT: cyanosis, rash Results Laboratory Results: 01/23/19 20:04 01/23/19 20:04 01/23/19 01/23/19 01/23/19 20:04 20:04 20:04 WBC 6.8 RBC 4.93 Hgb 14.9 Hct 44.6 MCV 91 MCH 30.2 MCHC 33.4 RDW 13.8 Plt Count 183 Seg Neutrophils % 51.0 Lymphocytes % 42.3 Monocytes % 5.7 Eosinophils % 0.6 Basophils % 0.4 Absolute Neutrophils 3.5 Absolute Lymphocytes 2.9 Absolute Monocytes 0.4 Absolute Eosinophils 0.0 Absolute Basophils 0.0 Sodium 141.0 Potassium 2.6 L* Chloride 103 Carbon Dioxide 19 L Anion Gap 19 BUN 5 L Creatinine 0.62 Est GFR ( Amer) > 60 Est GFR (Non-Af Amer) > 60 Glucose 101 Calcium 10.2 Magnesium 1.8 Total Bilirubin 0.4 AST 28 ALT 31 Alkaline Phosphatase 72 Total Protein 7.8 Albumin 4.9 Lipase TSH 01/23/19 01/23/19 20:04 20:04 WBC RBC Hgb Hct MCV MCH MCHC RDW Plt Count Seg Neutrophils % Lymphocytes % Monocytes % Eosinophils % Basophils % Absolute Neutrophils Absolute Lymphocytes Absolute Monocytes Absolute Eosinophils Absolute Basophils Sodium Potassium Chloride Carbon Dioxide Anion Gap BUN Creatinine Est GFR ( Amer) Est GFR (Non-Af Amer) Glucose Calcium Magnesium Total Bilirubin AST ALT Alkaline Phosphatase Total Protein Albumin Lipase 108.6 TSH 1.75 01/23/19 01/24/19 20:04 01:18 Troponin I < 0.012 < 0.012 Impressions: Chest X-Ray 01/23/19 20:40 IMPRESSION: No acute finding. copyright 2010 [employer]- All Rights Reserved Assessment and Plan - Diagnosis (1) Acute psychosis Is this a current diagnosis for this admission?: Yes Plan: Acute sung with psychosis. Limited by prolonged QT interval, outpatient Geodon, IV Ativan, lithium and Benadryl. Mental health consult (2) Homicidal ideation Is this a current diagnosis for this admission?: Yes Plan: Adequate sedation, mental health consult and sitter ordered (3) Atypical chest pain Is this a current diagnosis for this admission?: Yes Plan: Atypical chest pain though the patient's pain is atypical there are multiple risk factors for coronary artery disease and subsequently will observe and evaluation of acute coronary syndrome versus coronary artery disease with anginal equivalents. Cardiac monitoring blood pressure Q6 hours ,TSH, lipid profile, serial cardiac enzymes and consideration of cardiac stress test after psychiatric stabilization. - Time Time Spent with patient: 35 or more minutes - Inpatient Certification Medical Necessity: Need Close Monitoring Due to Risk of Patient Decompensation
[2019-01-24] MEDS: ZIPRASIDONE HCL 20 MG CAPSULE PO SCH ×2 (10:09→15:05)
[2019-01-24] MEDS: BENZTROPINE MESYLATE 1 MG TABLET PO SCH ×2 (10:09→21:15)
[2019-01-24] MEDS: DIVALPROEX SODIUM 500 MG TAB.SR.24H PO SCH ×2 (10:10→17:31)
[2019-01-24] MEDS: GUAIFENESIN SYRP 200 MG/10 ML UDC PO PRN ×2 (11:42→17:31)
[2019-01-24] MEDS ORDERED: NICOTINE 7 MG/24 HR PATCH.TD24 TD PRN (17:40)
--- NOTE | 2019-01-24 17:40 | PDOC PROGRESS REPORT ---
Subjective Progress Note for:: 01/24/19 Subjective:: KEESHA BARONE is a 48 year old female with a past medical history of schizophrenia, bipolar and tobacco dependence who presented to the emergency department with a complaint of chest pain and found to have acute psychosis with homicidal ideations. The patient was seen on morning rounds with nursing present. She was found to be resting in bed comfortably on room air. She was sleeping when I entered the room, but woke easily when I said her name. At the time of my visit, the patient was calm, cooperative, and pleasant. She does confirm that she had chest pain which she has felt in the past; relates that it is likely related to anxiety, denies aggravating or alleviating factors, or associated symptoms. She denies fever, chills, current chest pain, palpitations, dyspnea, orthopnea, abdominal pain, nausea vomiting and diarrhea. She has no questions or concerns at this time. No concerns per nursing. Reason For Visit: CHEST PAIN HYPOKALEMIA, SCHIZOPHRENIA Physical Exam Vital Signs: Temp Pulse Resp BP Pulse Ox 97.9 F 100 18 144/80 H 99 01/24/19 16:00 01/24/19 16:00 01/24/19 16:00 01/24/19 16:00 01/24/19 16:00 Intake & Output 01/23/19 01/24/19 01/25/19 06:59 06:59 06:59 Intake Total 100 355 Output Total 0 Balance 100 355 Weight 67.5 kg General appearance: PRESENT: no acute distress, cooperative, well-developed, well-nourished Head exam: PRESENT: atraumatic, normocephalic Eye exam: PRESENT: conjunctiva pink, EOMI, PERRLA. ABSENT: scleral icterus Ear exam: PRESENT: normal external ear exam Mouth exam: PRESENT: moist, tongue midline Neck exam: ABSENT: carotid bruit, JVD, lymphadenopathy, thyromegaly Respiratory exam: PRESENT: clear to auscultation naty, symmetrical, unlabored. ABSENT: rales, rhonchi, wheezes Cardiovascular exam: PRESENT: RRR, +S1, +S2. ABSENT: diastolic murmur, rubs, systolic murmur Pulses: PRESENT: normal dorsalis pedis pul Vascular exam: PRESENT: normal capillary refill GI/Abdominal exam: PRESENT: normal bowel sounds, soft. ABSENT: distended, guarding, mass, organolmegaly, rebound, tenderness Rectal exam: PRESENT: deferred Extremities exam: PRESENT: full ROM. ABSENT: calf tenderness, clubbing, pedal edema Neurological exam: PRESENT: alert, awake, oriented to person, oriented to place, oriented to time, oriented to situation, CN II-XII grossly intact. ABSENT: motor sensory deficit Psychiatric exam: PRESENT: appropriate affect, normal mood. ABSENT: homicidal ideation, suicidal ideation Skin exam: PRESENT: dry, intact, warm. ABSENT: cyanosis, rash Results Laboratory Results: 01/23/19 20:04 01/23/19 20:04 01/23/19 01/23/19 01/23/19 20:04 20:04 20:04 WBC 6.8 RBC 4.93 Hgb 14.9 Hct 44.6 MCV 91 MCH 30.2 MCHC 33.4 RDW 13.8 Plt Count 183 Seg Neutrophils % 51.0 Lymphocytes % 42.3 Monocytes % 5.7 Eosinophils % 0.6 Basophils % 0.4 Absolute Neutrophils 3.5 Absolute Lymphocytes 2.9 Absolute Monocytes 0.4 Absolute Eosinophils 0.0 Absolute Basophils 0.0 Sodium 141.0 Potassium 2.6 L* Chloride 103 Carbon Dioxide 19 L Anion Gap 19 BUN 5 L Creatinine 0.62 Est GFR ( Amer) > 60 Est GFR (Non-Af Amer) > 60 Glucose 101 Calcium 10.2 Magnesium 1.8 Total Bilirubin 0.4 AST 28 ALT 31 Alkaline Phosphatase 72 Total Protein 7.8 Albumin 4.9 Lipase TSH 01/23/19 01/23/19 20:04 20:04 WBC RBC Hgb Hct MCV MCH MCHC RDW Plt Count Seg Neutrophils % Lymphocytes % Monocytes % Eosinophils % Basophils % Absolute Neutrophils Absolute Lymphocytes Absolute Monocytes Absolute Eosinophils Absolute Basophils Sodium Potassium Chloride Carbon Dioxide Anion Gap BUN Creatinine Est GFR ( Amer) Est GFR (Non-Af Amer) Glucose Calcium Magnesium Total Bilirubin AST ALT Alkaline Phosphatase Total Protein Albumin Lipase 108.6 TSH 1.75 01/23/19 01/24/19 01/24/19 20:04 01:18 06:43 Troponin I < 0.012 < 0.012 < 0.012 01/24/19 12:03 Troponin I < 0.012 Impressions: Chest X-Ray 01/23/19 20:40 IMPRESSION: No acute finding. copyright 2011 [employer]- All Rights Reserved Assessment and Plan - Diagnosis (1) Acute psychosis Is this a current diagnosis for this admission?: Yes Plan: Acute sung with psychosis. Limited by prolonged QT interval. Previous provider administered outpatient Geodon, IV Ativan, lithium and Benadryl to good effect. At time of my assessment, patient was calm and cooperative. Depakote and Valporic acid levels are pending. Continue home dose Cogentin, Depakote, [place], and as needed ativan. Mental health consultation obtained; have recommended discontinuing Geodon and to continue other medications unchanged. Now under IVC status; mental health services seeking inpatient psych placement. (2) Homicidal ideation Is this a current diagnosis for this admission?: Yes Plan: Adequate sedation, mental health consult and sitter ordered Remaining evaluation management as above. (3) Atypical chest pain Is this a current diagnosis for this admission?: Yes Plan: Atypical chest pain though the patient's pain is atypical there are multiple risk factors for coronary artery disease and subsequently will observe and evaluation of acute coronary syndrome versus coronary artery disease with anginal equivalents. Troponins are negative x3. TSH is normal. Lipid panel and A1c for risk stratification are pending. She is admitted to the medical floor on continuous cardiac telemetry. Consider cardiac stress test after psychiatric stabilization. (4) Hypokalemia Is this a current diagnosis for this admission?: Yes Plan: Patient refused K riders; provided p.o. replacement. We will monitor daily chemistries and continue to replace as indicated. - Time Time Spent with patient: 25-34 minutes Medications reviewed and adjusted accordingly: Yes Anticipated discharge: Other - Inpatient psychiatric placement
[2019-01-24 18:58] LABS: ANION GAP 10 (5-19); BLOOD UREA NITROGEN 2 mg/dL (7-20); CALCIUM 9.9 mg/dL (8.4-10.2); CARBON DIOXIDE 25 mmol/L (22-30); CHLORIDE 106 mmol/L (98-107); GLUCOSE 85 mg/dL (75-110); LITHIUM 0.9 mEq/L (0.6-1.2); SODIUM 141.4 mmol/L (137-145)
[2019-01-24 19:22] LABS: POTASSIUM 3.9 mmol/L (3.6-5.0)
[2019-01-24] MEDS: ATORVASTATIN CALCIUM 40 MG TABLET PO SCH (21:15)
--- NOTE | 2019-01-24 21:43 | PSYCHOLOGICAL NOTE ---
Psych Note - Psych Note Date seen by psych provider: 01/24/19 Psych Note: Diagnosis: Bipolar Disorder by History per daughter Schizophrenia by History per daughter Medication recommendations made by the psychiatric medical provider, Dr. Marbella MD., includes: Request Depakote and [place] Levels Discontinue Geodon 20MG three times a day Impression/Plan: Recommendation to IVC patient. 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 Then she slept all day per patient clinical safety specialist. This clinician woke her up. Daughter noted SPMI history. She reported patient being noncompliant with medication, having a 30 day scripts from an inpatient stay at [place] 3-4 years ago, acting out, having bad outbursts, being self destructive, not caring about consequences, throwing fits (breaking/tearing up/slamming stuff in the home, yelling and hollering), easily frustrated over the smallest things, and having these episodes randomly but frequently. These are all symptoms and will likely lead to psychotic break without medication. Consulted with Dr. Mcmillan regarding the management and care of patient. Attending Hospitalist made aware of recommendations.
[2019-01-25] MEDS: GUAIFENESIN SYRP 200 MG/10 ML UDC PO PRN ×2 (01:01→09:30)
[2019-01-25 02:55] LABS: URINE AMPHETAMINES SCREEN NEGATIVE; URINE BARBITURATES SCREEN NEGATIVE; URINE BENZODIAZEPINES SCREEN NEGATIVE; URINE COCAINE SCREEN NEGATIVE; URINE METHADONE SCREEN NEGATIVE; URINE PHENCYCLIDINE SCREEN NEGATIVE
[2019-01-25 02:57] LABS: URINE MARIJUANA (THC) SCREEN UNCONFIRMED POSITIVE
[2019-01-25 06:02] LABS: ANION GAP 10 (5-19); CALCIUM 9.8 mg/dL (8.4-10.2); CARBON DIOXIDE 27 mmol/L (22-30); CHLORIDE 104 mmol/L (98-107); GLUCOSE 98 mg/dL (75-110); POTASSIUM 3.5 mmol/L (3.6-5.0); SODIUM 141.3 mmol/L (137-145)
[2019-01-25 06:07] LABS: BLOOD UREA NITROGEN < 2 mg/dL (7-20)
[2019-01-25] MEDS: BENZTROPINE MESYLATE 1 MG TABLET PO SCH (09:30)
[2019-01-25] MEDS: LITHIUM CARBONATE 300 MG CAPSULE PO SCH (09:30)
[2019-01-25] MEDS: DIVALPROEX SODIUM 500 MG TAB.SR.24H PO SCH (09:30)
[2019-01-25] MEDS ORDERED: POTASSIUM CHLORIDE 10 MEQ CAPSULE.ER PO SCH (10:00)
[2019-01-25 12:10] VITALS: BP 132/89
--- NOTE | 2019-01-25 12:37 | PDOC PROGRESS REPORT ---
Subjective Progress Note for:: 01/25/19 Subjective:: 48 year old female with a past medical history of schizophrenia, bipolar and tobacco dependence who presented to the emergency department with a complaint of chest pain and found to have acute psychosis with homicidal ideations. The patient was seen on morning rounds with nursing present. She was found to be resting in bed comfortably on room air. She was sleeping when I entered the room, but woke easily when I said her name. At the time of my visit, the elliot ent was calm, cooperative, and pleasant. She does confirm that she had chest pain which she has felt in the past; relates that it is likely related to anxiety, denies aggravating or alleviating factors, or associated symptoms. She denies fever, chills, current chest pain, palpitations, dyspnea, orthopnea, abdominal pain, nausea vomiting and diarrhea. She has no questions or concerns at this time. No concerns per nursing. 01/25/[id number]-kofq-old female with history of schizophrenia, bipolar disorder, chronic smoker admitted with chest pain found to have acute psychosis with homicidal ideation. Psych consult was done. The following the rec recommendations from the psychiatrist. Plan to do the test as per the psychiatric recommendations. No acute events in the last 24 hours. Afebrile. Reason For Visit: CHEST PAIN HYPOKALEMIA, SCHIZOPHRENIA Physical Exam Vital Signs: Temp Pulse Resp BP Pulse Ox 98.2 F 55 L 16 132/89 H 99 01/25/19 11:21 01/25/19 11:21 01/25/19 11:21 01/25/19 11:21 01/25/19 11:21 Intake & Output 01/24/19 01/25/19 01/26/19 06:59 06:59 06:59 Intake Total 100 573 Output Total 0 Balance 100 573 Weight 67.5 kg 67.5 kg General appearance: PRESENT: no acute distress Head exam: PRESENT: atraumatic Eye exam: PRESENT: PERRLA Ear exam: PRESENT: normal external ear exam Mouth exam: PRESENT: dry mucosa Neck exam: ABSENT: carotid bruit, JVD, lymphadenopathy, thyromegaly Respiratory exam: PRESENT: clear to auscultation naty. ABSENT: rales, rhonchi, w heezes Cardiovascular exam: PRESENT: RRR. ABSENT: diastolic murmur, rubs, systolic murmur GI/Abdominal exam: PRESENT: normal bowel sounds, soft. ABSENT: distended, guarding, mass, organolmegaly, rebound, tenderness Rectal exam: PRESENT: deferred Extremities exam: PRESENT: full ROM. ABSENT: calf tenderness, clubbing, pedal edema Neurological exam: PRESENT: alert, awake, oriented to person, oriented to place, oriented to time, oriented to situation, CN II-XII grossly intact. ABSENT: motor sensory deficit Psychiatric exam: PRESENT: appropriate affect, normal mood. ABSENT: homicidal ideation, suicidal ideation Skin exam: PRESENT: dry, intact, warm. ABSENT: cyanosis, rash Results Laboratory Results: 01/23/19 20:04 01/25/19 05:14 01/24/19 01/25/19 18:02 05:14 Sodium 141.4 141.3 Potassium 3.9 D 3.5 L Chloride 106 104 Carbon Dioxide 25 27 Anion Gap 10 10 BUN 2 L < 2 L Creatinine 0.72 0.65 Est GFR ( Amer) > 60 > 60 Est GFR (Non-Af Amer) > 60 > 60 Glucose 85 98 Calcium 9.9 9.8 01/23/19 01/24/19 01/24/19 20:04 01:18 06:43 Troponin I < 0.012 < 0.012 < 0.012 01/24/19 01/24/19 12:03 18:02 Troponin I < 0.012 < 0.012 Impressions: Chest X-Ray 01/23/19 20:40 IMPRESSION: No acute finding. copyright 2010 [employer]- All Rights Reserved Assessment and Plan - Diagnosis (1) Acute psychosis Is this a current diagnosis for this admission?: Yes Plan: Acute sung with psychosis. Limited by prolonged QT interval. Previous provider administered outpatient Geodon, IV Ativan, lithium and Benadryl to good effect. At time of my assessment, patient was calm and cooperative. Depakote and Valporic acid levels are pending. Continue home dose Cogentin, Depakote, [place], and as needed ativan. Mental health consultation obtained; have recommended discontinuing Geodon and to continue other medications unchanged. Now under IVC status; mental health services seeking inpatient psych placement. 01/24/2019-patient was admitted with acute psychosis with sung. Presently on Cogentin, Depakote, lithium and Ativan as needed. Patient is presently under involuntary commitment. As per the psych recommendations planning to do the test today. Continue the present management. (2) Hypokalemia Is this a current diagnosis for this admission?: Yes Plan: Patient refused K riders; provided p.o. replacement. We will monitor daily chemistries and continue to replace as indicated. 01/25/2019-serum potassium level today is 3.5 patient is on daily potassium 40 mg. plan to recheck the labs tomorrow. (3) Homicidal ideation Is this a current diagnosis for this admission?: Yes Plan: Adequate sedation, mental health consult and sitter ordered Remaining evaluation management as above. 01/25/2019-patient is presently under involuntary commitment with a sitter. [facility] health consult was done. We following the recommendations from the psychiatric team. (4) Atypical chest pain Is this a current diagnosis for this admission?: Yes Plan: Atypical chest pain though the patient's pain is atypical there are multiple risk factors for coronary artery disease and subsequently will observe and evalu ation of acute coronary syndrome versus coronary artery disease with anginal equivalents. Troponins are negative x3. TSH is normal. Lipid panel and A1c for risk stratification are pending. She is admitted to the medical floor on continuous cardiac telemetry. Consider cardiac stress test after psychiatric stabilization. 01/25/2019-patient admitted with atypical chest pain. So far cardiac enzymes are negative EKGs are negative. Plan is to check the lipid panel and hemoglobin A1c tomorrow morning. - Time Time Spent with patient: 15-24 minutes Medications reviewed and adjusted accordingly: Yes Anticipated discharge: [facility]
--- NOTE | 2019-01-25 13:50 | PDOC TRANSFER SUMMARY ---
General Admission Date/PCP: 01/23/19 22:09 Resuscitation Status: Full Code - Transfer Diagnosis (1) Homicidal ideation Is this a current diagnosis for this admission?: Yes Diagnosis Summary: Adequate sedation, mental health consult and sitter ordered Remaining evaluation management as above. 01/25/2019-patient is presently under involuntary commitment with a sitter. Mental health consult was done. We following the recommendations from the psychiatric team. (2) Acute psychosis Is this a current diagnosis for this admission?: Yes Diagnosis Summary: Acute sung with psychosis. Limited by prolonged QT interval. Previous provider administered outpatient Geodon, IV Ativan, lithium and Benadryl to good effect. At time of my assessment, patient was calm and cooperative. Depakote and Valporic acid levels are pending. Continue home dose Cogentin, Depakote, [place], and as needed ativan. Mental health consultation obtained; have recommended discontinuing Geodon and to continue other medications unchanged. Now under IVC status; mental health services seeking inpatient psych placement. 01/24/2019-patient was admitted with acute psychosis with sung. Presently on Cogentin, Depakote, lithium and Ativan as needed. Patient is presently under involuntary commitment. As per the psych recommendations planning to do the test today. Continue the present management. 01/25/2019-patient was accepted to inpatient psych facility in [facility] patient is going to be discharged today. (3) Hypokalemia Is this a current diagnosis for this admission?: Yes Diagnosis Summary: Patient refused K riders; provided p.o. replacement. We will monitor daily chemistries and continue to replace as indicated. 01/25/2019-serum potassium level today is 3.5 patient is on daily potassium 40 mg. plan to recheck the labs tomorrow. (4) Atypical chest pain Is this a current diagnosis for this admission?: Yes Diagnosis Summary: Atypical chest pain though the patient's pain is atypical there are multiple risk factors for coronary artery disease and subsequently will observe and evaluation of acute coronary syndrome versus coronary artery disease with anginal equivalents. Troponins are negative x3. TSH is normal. Lipid panel and A1c for risk stratification are pending. She is admitted to the medical floor on continuous cardiac telemetry. Consider cardiac stress test after psychiatric stabilization. 01/25/2019-patient admitted with atypical chest pain. So far cardiac enzymes are negative EKGs are negative. Plan is to check the lipid panel and hemoglobin A1c tomorrow morning. - Transfer Medications Home Medications: Benztropine Mesylate [Cogentin 1 mg Tablet] 1 mg PO QHS 05/12/16 Divalproex Sodium [Depakote] 500 mg PO TID 05/12/16 Transfer Medications: Current Medications Acetaminophen (Tylenol 325 Mg Tablet) 650 mg PO Q4HP PRN PRN Reason: FOR HEADACHE Stop: 02/22/19 22:03 Al Hydrox/Mg Hydrox/Simethicone (Maalox Plus Susp 30 Udcup) 30 ml PO Q4HP PRN PRN Reason: HEARTBURN Stop: 02/22/19 22:03 Atorvastatin Calcium (Lipitor 40 Mg Tablet) 40 mg PO QHS NIGHAT Stop: 02/22/19 22:14 Last Admin: 01/24/19 21:15 Dose: 40 mg Documented by: Benztropine Mesylate (Cogentin 1 Mg Tablet) 1 mg PO QHS NIGHAT Stop: 02/22/19 22:14 Last Admin: 01/24/19 21:15 Dose: 1 mg Documented by: Benztropine Mesylate (Cogentin 1 Mg Tablet) 1 mg PO DAILY NIGHAT Stop: 02/23/19 09:59 Last Admin: 01/25/19 09:30 Dose: 1 mg Documented by: Divalproex Sodium (Depakote Er 500 Mg Tab.Sr) 500 mg PO BID NIGHAT Stop: 02/22/19 22:59 Last Admin: 01/25/19 09:30 Dose: 500 mg Documented by: Guaifenesin (Robitussin Syrup 200 Mg/10 Ml Ud Cup) 200 mg PO Q4HP PRN PRN Reason: COUGH Stop: 02/23/19 11:12 Last Admin: 01/25/19 09:30 Dose: 200 mg Documented by: [place] Carbonate (Lithobid 300 Mg Capsule) 600 mg PO Q12 NIGHAT Stop: 02/23/19 00:29 Last Admin: 01/25/19 09:30 Dose: 600 mg Documented by: Lorazepam (Ativan Inj 2 Mg/1 Ml Vial) 2 mg IV Q2HP PRN PRN Reason: ANXIETY/AGITATION Stop: 01/31/19 05:44 Nicotine (Nicoderm 7 Mg/24 Hr Transdermal Patch) 1 each TD DAILYP PRN PRN Reason: WITHDRAWAL SYMPTOMS Stop: 02/23/19 17:39 Nitroglycerin (Nitrostat 0.4 Mg (1/150 Gr) Tabs 25/Bottle) 1 tab SL Q5MP PRN PRN Reason: FOR CHEST PAIN Potassium Chloride (Klor-Con 10 Meq Capsule Er) 40 meq PO DAILY [facility] Stop: 02/24/19 09:59 Last Admin: 01/25/19 09:31 Dose: 40 meq Documented by: Sodium Chloride (Saline Flush 2.5 Ml Monoject Prefil Syrin) 2.5 ml IV Q8 [facility] Stop: 02/22/19 22:14 Last Admin: 01/25/19 05:09 Dose: Not Given Documented by: - Allergies Allergies/Adverse Reactions: morphine Adverse Reaction (Verified 01/31/17 23:18) Hallucinations Hospital Course Hospital Course: 01/25/[id number]-lbte-old female came to the emergency room with complaints of atypical chest pain. During the work-up found to have homicidal ideation. psych consult was done and she was placed in IVC. We follow the psych recomm endations. No acute events during the hospital course. Patient is accepted to inpatient facility [facility]. Physical Exam Vital Signs: Temp Pulse Resp BP Pulse Ox 98.2 F 55 L 16 132/89 H 99 01/25/19 11:21 01/25/19 11:21 01/25/19 11:21 01/25/19 11:21 01/25/19 11:21 Intake & Output 01/24/19 01/25/19 01/26/19 06:59 06:59 06:59 Intake Total 100 573 Output Total 0 Balance 100 573 Weight 67.5 kg 67.5 kg General appearance: PRESENT: no acute distress Head exam: PRESENT: atraumatic Eye exam: PRESENT: PERRLA Ear exam: PRESENT: normal external ear exam Mouth exam: PRESENT: moist, tongue midline Neck exam: ABSENT: carotid bruit, JVD, lymphadenopathy, thyromegaly Respiratory exam: PRESENT: clear to auscultation naty. ABSENT: rales, rhonchi, wheezes Cardiovascular exam: PRESENT: RRR. ABSENT: diastolic murmur, rubs, systolic murmur GI/Abdominal exam: PRESENT: normal bowel sounds, soft. ABSENT: distended, guarding, mass, organolmegaly, rebound, tenderness Rectal exam: PRESENT: deferred Extremities exam: PRESENT: full ROM. ABSENT: calf tenderness, clubbing, pedal edema Neurological exam: PRESENT: alert, awake, oriented to person, oriented to place, oriented to time, oriented to situation, CN II-XII grossly intact. ABSENT: motor sensory deficit Psychiatric exam: PRESENT: appropriate affect, normal mood. ABSENT: homicidal ideation, suicidal ideation Results Laboratory Results: 01/23/19 20:04 01/25/19 05:14 01/24/19 01/25/19 18:02 05:14 Sodium 141.4 141.3 Potassium 3.9 D 3.5 L Chloride 106 104 Carbon Dioxide 25 27 Anion Gap 10 10 BUN 2 L < 2 L Creatinine 0.72 0.65 Est GFR ( Amer) > 60 > 60 Est GFR (Non-Af Amer) > 60 > 60 Glucose 85 98 Calcium 9.9 9.8 01/23/19 01/24/19 01/24/19 20:04 01:18 06:43 Troponin I < 0.012 < 0.012 < 0.012 01/24/19 01/24/19 12:03 18:02 Troponin I < 0.012 < 0.012 Impressions: Chest X-Ray 01/23/19 20:40 IMPRESSION: No acute finding. copyright 2011 [employer]- All Rights Reserved Plan Discharge Plan: Patient is getting transferred to inpatient psych facility. Time Spent: Greater than 30 Minutes
== END 2019-01-25 14:41 ==
LOC: ER 19:54 → EH 22:09 → 4S 01-24 00:50
PROVIDERS: ADMIT Internal Medicine; ATTEND Internal Medicine
DX: R45.850 Homicidal ideations (principal); E87.6 Hypokalemia; R07.89 Other chest pain; F25.9 Schizoaffective disorder, unspecified; F31.9 Bipolar disorder, unspecified; F23 Brief psychotic disorder; R19.7 Diarrhea, unspecified; R00.0 Tachycardia, unspecified; R05 Cough; F17.210 Nicotine dependence, cigarettes, uncomplicated; Z82.49 Family history of ischemic heart disease and other diseases of the circulatory system; Z79.899 Other long term (current) drug therapy; Z63.8 Other specified problems related to primary support group; Z91.14 Patient's other noncompliance with medication regimen
CPT/HCPCS: 93005; 99285; 36415 ×3; 83690; 80178; 83735; 84443; 85025; 81025; 80048 ×2; 80053; 84484 ×2; 80164; 80307; 71045; 93010; G0378 ×3; J3490 ×13; J1200; J2060

== ENCOUNTER 2019-03-03 13:41 | Emergency (ER) | payer MEDICAID ==
[2019-03-03] MEDS ORDERED: ASPIRIN 81 MG TABLET, CHEWABLE PO ONE (13:45)
--- NOTE | 2019-03-03 13:48 | ER Document Report ---
ED Medical Screen (RME) - General Chief Complaint: Chest Pain Stated Complaint: CHEST PAIN Time Seen by Provider: 03/03/19 13:44 Mode of Arrival: Medic Information source: Patient Notes: 48-year-old female presented to ED for anxiety depression and chest pain. She states she has to move out of her daughter's house and she was walking from hotel to hotel trying to find some place to live when she developed chest pain. She denies shortness of breath. She states she has a history of bipolar depression and anxiety bipolar schizophrenia schizoaffective disorder. Patient states she has cut way back on the cigarettes that she only smokes a couple a day now. Patient did come by EMS with a exacerbation of her psychiatric illnesses and chest pain. I have greeted and performed a rapid initial assessment of this patient. A comprehensive ED assessment and evaluation of the patient, analysis of test results and completion of medical decision making process will be conducted by an additional ED providers. Dictation of this chart was performed using voice recognition software; therefore, there may be some unintended grammatical errors. TRAVEL OUTSIDE OF THE [place] IN LAST 30 DAYS: No - Related Data Allergies/Adverse Reactions: morphine Adverse Reaction (Verified 03/03/19 13:42) Hallucinations Past Medical History Renal/ Medical History: Denies: Hx Peritoneal Dialysis Psychiatric Medical History: Reports: Hx Bipolar Disorder, Hx Depression, Hx Schizoaffective Disorder, Hx Schizophrenia Past Surgical History: Reports: Hx Tubal Ligation - Immunizations Hx Diphtheria, Pertussis, Tetanus Vaccination: No
[2019-03-03 13:54] VITALS: BP 142/94
[2019-03-03 14:31] LABS: ABSOLUTE BASOPHILS # (AUTO) 0.1 10^3/uL (0.0-0.2); ABSOLUTE LYMPHOCYTES (AUTO) 1.7 10^3/uL (0.5-4.7); ABSOLUTE MONOCYTES (AUTO) 0.3 10^3/uL (0.1-1.4); ABSOLUTE NEUT (AUTO) 6.3 10^3/uL (1.7-8.2); BASOPHILS % (AUTO) 0.9 % (0-2); EOSINOPHILS % (AUTO) 0.1 % (0-6); HEMOGLOBIN 13.9 g/dL (12.0-15.5); LYMPHOCYTES % (AUTO) 20.4 % (13-45); MEAN CORPUSCULAR HEMOGLOBIN 30.5 pg (27.0-33.4); MEAN CORPUSCULAR HGB CONC 33.9 g/dL (32.0-36.0); MEAN CORPUSCULAR VOLUME 90 fl (80-97); MONOCYTES % (AUTO) 3.3 % (3-13); PLATELET COUNT 175 10^3/uL (150-450); RED BLOOD COUNT 4.55 10^6/uL (3.72-5.28); RED CELL DISTRIBUTION WIDTH 14.1 % (11.5-14.0); SEGMENTED NEUTROPHILS % (AUTO) 75.3 % (42-78); TOTAL CELLS COUNTED % (AUTO) 100 %; WHITE BLOOD COUNT 8.4 10^3/uL (4.0-10.5)
[2019-03-03 14:37] LABS: APPEARANCE,URINE CLEAR; BILIRUBIN,URINE NEGATIVE (NEGATIVE); COLOR,URINE YELLOW; GLUCOSE, URINE NEGATIVE (NEGATIVE); KETONES,URINE 20 mg/dL (NEGATIVE); LEUKOCYTE ESTERASE,URINE NEGATIVE (NEGATIVE); NITRITE,URINE NEGATIVE (NEGATIVE); PROTEIN,URINE NEGATIVE (NEGATIVE); URINE SPECIFIC GRAVITY 1.008; UROBILINOGEN,URINE NEGATIVE mg/dL (<2.0)
--- NOTE | 2019-03-03 14:46 | RADIOLOGY REPORT (SQ) ---
EXAM DESCRIPTION: CHEST 2 VIEWS COMPLETED DATE/TIME: 03/03/2019 2:36 pm REASON FOR STUDY: chest pain COMPARISON: 01/23/2019 EXAM PARAMETERS: NUMBER OF VIEWS: two views TECHNIQUE: Digital Frontal and Lateral radiographic views of the chest acquired. RADIATION DOSE: NA LIMITATIONS: none FINDINGS: LUNGS AND PLEURA: No opacities, masses or pneumothorax. No pleural effusion. MEDIASTINUM AND HILAR STRUCTURES: No masses or contour abnormalities. HEART AND VASCULAR STRUCTURES: Heart normal size. No evidence for failure. BONES: No acute findings. HARDWARE: None in the chest. OTHER: No other significant finding. IMPRESSION: NO ACUTE RADIOGRAPHIC FINDING IN THE CHEST. TECHNICAL DOCUMENTATION: JOB ID: [id number] [employer]- All Rights Reserved Reading location - IP/workstation name: [email or web address]
[2019-03-03 14:47] LABS: ALANINE AMINOTRANSFERASE 31 U/L (9-52); ALBUMIN 4.7 g/dL (3.5-5.0); ALKALINE PHOSPHATASE 67 U/L (38-126); ANION GAP 11 (5-19); ASPARTATE AMINO TRANSFERASE 47 U/L (14-36); BILIRUBIN,DIRECT 0.3 mg/dL (0.0-0.4); BILIRUBIN,TOTAL 0.8 mg/dL (0.2-1.3); BLOOD UREA NITROGEN 6 mg/dL (7-20); CALCIUM 9.3 mg/dL (8.4-10.2); CARBON DIOXIDE 26 mmol/L (22-30); CHLORIDE 101 mmol/L (98-107); CREATINE KINASE 265 U/L (30-135); GLUCOSE 89 mg/dL (75-110); LIPASE 39.6 U/L (23-300); POTASSIUM 3.5 mmol/L (3.6-5.0); SODIUM 138.3 mmol/L (137-145); TOTAL PROTEIN 7.5 g/dL (6.3-8.2)
[2019-03-03 14:56] LABS: URINE AMPHETAMINES SCREEN NEGATIVE; URINE BARBITURATES SCREEN NEGATIVE; URINE BENZODIAZEPINES SCREEN NEGATIVE; URINE COCAINE SCREEN NEGATIVE; URINE MARIJUANA (THC) SCREEN UNCONFIRMED POSITIVE; URINE METHADONE SCREEN NEGATIVE; URINE PHENCYCLIDINE SCREEN NEGATIVE
[2019-03-03 15:06] LABS: TROPONIN I < 0.012 ng/mL
--- NOTE | 2019-03-03 16:18 | ER Document Report ---
ED General - General Chief Complaint: Chest Pain Stated Complaint: CHEST PAIN Time Seen by Provider: 03/03/19 13:44 Mode of Arrival: Medic Notes: 48-year-old female to the emergency department for evaluation of not feeling well. Patient states that she was in an argument so left the house and started walking. [place] like she might of gotten overheated. Has been walking outside for several hours. Patient does have some mental health issues but she states that most of these are under control at this time. Was recently admitted to the hospital for chest pain and had a work-up and was transferred to [facility] where she was subsequently discharged. States that her current living situation is poor. Decided she would move out today. Has been walking around trying to find a place to live. Currently after cooling off she denies having any chest pain or other symptoms. Requesting information for homeless senior living. Requesting some food and drink. TRAVEL OUTSIDE OF THE [place] IN LAST 30 DAYS: No - HPI Onset: Just prior to arrival Quality of pain: No pain Severity: Mild Pain Level: Denies - Related Data Allergies/Adverse Reactions: morphine Adverse Reaction (Verified 03/03/19 13:42) Hallucinations Past Medical History - General Information source: Patient - Social History Smoking Status: Current Every Day Smoker Chew tobacco use (# tins/day): No Frequency of alcohol use: Occasional Drug Abuse: None Family History: Hypertension Patient has suicidal ideation: No Patient has homicidal ideation: No Renal/ Medical History: Denies: Hx Peritoneal Dialysis Psychiatric Medical History: Reports: Hx Bipolar Disorder, Hx Depression, Hx Schizoaffective Disorder, Hx Schizophrenia Past Surgical History: Reports: Hx Tubal Ligation - Immunizations Hx Diphtheria, Pertussis, Tetanus Vaccination: No Review of Systems - Review of Systems Notes: Constitutional: denies: Chills, Diaphoresis, Fever, Malaise, Weakness EENT: denies: Eye discharge, Blurred vision, Tearing, Double vision, Nose congestion, Nose discharge, Throat swelling, Mouth pain Cardiovascular: denies: Palpitations, Heart racing, Orthopnea, Dyspnea, Chest pain Respiratory: denies: Cough, Hurts to breathe, Wheezing, Shortness of breath Gastrointestinal: denies: Abdominal pain, Diarrhea, Nausea, Vomiting, Black stools, bright red blood in stool Genitourinary: denies: Burning, Dysuria, Discharge, Frequency, Flank pain, Hematuria Musculoskeletal: denies: Joint pain, Joint swelling, Muscle pain, Muscle stiffness, back pain Hematologic/Lymphatic: denies: Anemia, Easy bleeding, Easy bruising, Blood clots Neurological/Psychological: denies: Confusion, Dementia, Depression, Loss of consciousness Skin: No lesions, no masses, no skin breakdown, no abscesses Physical Exam - Vital signs Vitals: Temp Pulse Resp BP Pulse Ox 99.0 F 78 16 142/94 H 97 03/03/19 13:52 03/03/19 13:52 03/03/19 13:52 03/03/19 13:52 03/03/19 13:52 Interpretation: Normal - General General appearance: Appears well, Alert - HEENT Head: Normocephalic, Atraumatic Eyes: Normal Pupils: PERRL - Respiratory Respiratory status: No respiratory distress Chest status: Nontender Breath sounds: Normal Chest palpation: Normal - Cardiovascular Rhythm: Regular Heart sounds: Normal auscultation Murmur: No - Abdominal Inspection: Normal Distension: No distension Bowel sounds: Normal Tenderness: Nontender Organomegaly: No organomegaly - Back Back: Normal, Nontender - Extremities General upper extremity: Normal inspection, Nontender, Normal color, Normal ROM, Normal temperature General lower extremity: Normal inspection, Nontender, Normal color, Normal ROM, Normal temperature, Normal weight bearing. No: Joey's sign - Neurological Neuro grossly intact: Yes Cognition: Normal Orientation: AAOx4 Sally Coma Scale Eye Opening: Spontaneous Sally Coma Scale Verbal: Oriented [place] Coma Scale Motor: Obeys Commands Sally Coma Scale Total: 15 Speech: Normal Motor strength normal: LUE, RUE, LLE, RLE Sensory: Normal - Psychological Associated symptoms: Normal affect, Normal mood - Skin Skin Temperature: Warm Skin Moisture: Dry Skin Color: Normal Course - Re-evaluation Re-evalutation: 03/03/19 16:16 Laboratory 03/03/19 03/03/19 03/03/19 14:21 14:21 14:21 WBC 8.4 RBC 4.55 Hgb 13.9 Hct 41.0 MCV 90 MCH 30.5 MCHC 33.9 RDW 14.1 H Plt Count 175 Seg Neutrophils % 75.3 Lymphocytes % 20.4 Monocytes % 3.3 Eosinophils % 0.1 Basophils % 0.9 Absolute Neutrophils 6.3 Absolute Lymphocytes 1.7 Absolute Monocytes 0.3 Absolute Eosinophils 0.0 Absolute Basophils 0.1 Sodium 138.3 Potassium 3.5 L Chloride 101 Carbon Dioxide 26 Anion Gap 11 BUN 6 L Creatinine 0.57 Est GFR ( Amer) > 60 Est GFR (Non-Af Amer) > 60 Glucose 89 Calcium 9.3 Total Bilirubin 0.8 Direct Bilirubin 0.3 Neonat Total Bilirubin Not Reportable Neonat Direct Bilirubin Not Reportable Neonat Indirect Bili Not Reportable AST 47 H ALT 31 Alkaline Phosphatase 67 Creatine Kinase 265 H CK-MB (CK-2) Troponin I Total Protein 7.5 Albumin 4.7 Lipase 39.6 Serum HCG, Qual NEGATIVE Urine Color Urine Appearance Urine pH Ur Specific [place] Urine Protein Urine Glucose (UA) Urine Ketones Urine Blood Urine Nitrite Urine Bilirubin Urine Urobilinogen Ur Leukocyte Esterase Urine WBC (Auto) Urine RBC (Auto) U Hyaline Cast (Auto) Squamous Epi Cells Auto Urine Mucus (Auto) Urine Ascorbic Acid Urine Opiates Screen Urine Methadone Screen Ur Barbiturates Screen Ur Phencyclidine Scrn Ur Amphetamines Screen U Benzodiazepines Scrn Urine Cocaine Screen U Marijuana (THC) Screen 03/03/19 03/03/19 03/03/19 14:21 14:21 14:21 WBC RBC Hgb Hct MCV MCH MCHC RDW Plt Count Seg Neutrophils % Lymphocytes % Monocytes % Eosinophils % Basophils % Absolute Neutrophils Absolute Lymphocytes Absolute Monocytes Absolute Eosinophils Absolute Basophils Sodium Potassium Chloride Carbon Dioxide Anion Gap BUN Creatinine Est GFR ( Amer) Est GFR (Non-Af Amer) Glucose Calcium Total Bilirubin Direct Bilirubin Neonat Total Bilirubin Neonat Direct Bilirubin Neonat Indirect Bili AST ALT Alkaline Phosphatase Creatine Kinase CK-MB (CK-2) 2.10 Troponin I < 0.012 Total Protein Albumin Lipase Serum HCG, Qual Urine Color YELLOW Urine Appearance CLEAR Urine pH 5.0 Ur Specific [place] 1.008 Urine Protein NEGATIVE Urine Glucose (UA) NEGATIVE Urine Ketones 20 H Urine Blood SMALL H Urine Nitrite NEGATIVE Urine Bilirubin NEGATIVE Urine Urobilinogen NEGATIVE Ur Leukocyte Esterase NEGATIVE Urine WBC (Auto) 1 Urine RBC (Auto) 1 U Hyaline Cast (Auto) 1 Squamous Epi Cells Auto 1 Urine Mucus (Auto) RARE Urine Ascorbic Acid NEGATIVE Urine Opiates Screen NEGATIVE Urine Methadone Screen NEGATIVE Ur Barbiturates Screen NEGATIVE Ur Phencyclidine Scrn NEGATIVE Ur Amphetamines Screen NEGATIVE U Benzodiazepines Scrn NEGATIVE Urine Cocaine Screen NEGATIVE U Marijuana (THC) Screen UNCONFIRMED POSITIVE Chest X-Ray 03/03/19 13:44 IMPRESSION: NO ACUTE RADIOGRAPHIC FINDING IN THE CHEST. Patient is well-appearing and in no acute distress. Does not appear to be having any significant cardiac issues. Probably more likely little dehydrated. Patient is drinking oral liquid and eating at this time. Resource sheet has been provided. At this time I feel patient stable for discharge. - Vital Signs Vital signs: Temp Pulse Resp BP Pulse Ox 99.0 F 78 16 142/94 H 97 03/03/19 13:52 03/03/19 13:52 03/03/19 13:52 03/03/19 13:52 03/03/19 13:52 - Laboratory Result Diagrams: 03/03/19 14:21 03/03/19 14:21 Laboratory results interpreted by me: 03/03/19 03/03/19 03/03/19 14:21 14:21 14:21 RDW 14.1 H Potassium 3.5 L BUN 6 L AST 47 H Creatine Kinase 265 H Urine Ketones 20 H Urine Blood SMALL H Discharge - Discharge Clinical Impression: Mild dehydration Condition: Good Disposition: HOME, SELF-CARE Instructions: Chest Pain of Unclear Cause ([facility]), Dehydration ([facility]) Additional Instructions: Continue to drink lots of liquids today. Return for any worsening symptoms or concerns. Referrals: [facility] [Provider Group] - Follow up as needed
--- NOTE | 2019-03-03 18:40 | EKG REPORT ---
SEVERITY:- NORMAL ECG - SINUS RHYTHM : Confirmed by: Geovanna Daniel 03-Mar-2019 18:39:35
== END 2019-03-03 16:50 | disposition home or self-care (01) ==
LOC: ER 13:41
DX: E86.0 Dehydration (principal); R07.9 Chest pain, unspecified; F17.200 Nicotine dependence, unspecified, uncomplicated; Z98.51 Tubal ligation status; Z88.6 Allergy status to analgesic agent
CPT/HCPCS: 36415; 71046; 80053; 80307; 81001; 82550; 82553; 83690; 84484; 84703; 85025; 93005; 93010; 99285

== ENCOUNTER 2019-05-12 11:00 | Emergency (ER) | payer MEDICAID ==
--- NOTE | 2019-05-12 11:44 | ER Document Report ---
ED Medical Screen (RME) - General Chief Complaint: Doesn't Feel Right Stated Complaint: NOT FEELING WELL/NO MAIN COMPLAINT Time Seen by Provider: 05/12/19 11:41 Mode of Arrival: Wheelchair Information source: Patient Notes: 48-year-old female presented to ED for feeling bad all over. She states she took her Depakote and Geodon about 8 and 1027 her daughter called stating that the patient was having side effects to the medicine she was twisted up and she felt very nauseated and not feeling very well she brought the patient to the emergency room. She states when this happened before they gave her Cogentin for side effects. She states she took 1 Cogentin and had to take a second 1 to resolve the symptoms.\Came to the emergency room. She states she is feeling a lot better at this time. I have greeted and performed a rapid initial assessment of this patient. A comprehensive ED assessment and evaluation of the patient, analysis of test results and completion of medical decision making process will be conducted by an additional ED providers. TRAVEL OUTSIDE OF THE [place] IN LAST 30 DAYS: No - Related Data Allergies/Adverse Reactions: morphine Adverse Reaction (Verified 05/12/19 11:04) Hallucinations Past Medical History Renal/ Medical History: Denies: Hx Peritoneal Dialysis Psychiatric Medical History: Reports: Hx Bipolar Disorder, Hx Depression, Hx Schizoaffective Disorder, Hx Schizophrenia Past Surgical History: Reports: Hx Tubal Ligation - Immunizations Hx Diphtheria, Pertussis, Tetanus Vaccination: No Physical Exam - Vital signs Vitals: Temp Pulse Resp BP Pulse Ox 98.8 F 100 18 109/61 94 05/12/19 11:06 05/12/19 11:06 05/12/19 11:06 05/12/19 11:06 05/12/19 11:06 Course - Vital Signs Vital signs: Temp Pulse Resp BP Pulse Ox 98.8 F 100 18 109/61 94 05/12/19 11:06 05/12/19 11:06 05/12/19 11:06 05/12/19 11:06 05/12/19 11:06
[2019-05-12 12:10] LABS: ABSOLUTE BASOPHILS # (AUTO) 0.1 10^3/uL (0.0-0.2); ABSOLUTE EOSINOPHILS # (AUTO) 0.1 10^3/uL (0.0-0.6); ABSOLUTE LYMPHOCYTES (AUTO) 2.4 10^3/uL (0.5-4.7); ABSOLUTE MONOCYTES (AUTO) 0.4 10^3/uL (0.1-1.4); BASOPHILS % (AUTO) 0.7 % (0-2); EOSINOPHILS % (AUTO) 1.4 % (0-6); HEMATOCRIT 36.1 % (36.0-47.0); HEMOGLOBIN 12.1 g/dL (12.0-15.5); LYMPHOCYTES % (AUTO) 29.6 % (13-45); MEAN CORPUSCULAR HGB CONC 33.6 g/dL (32.0-36.0); MEAN CORPUSCULAR VOLUME 92 fl (80-97); MONOCYTES % (AUTO) 5.3 % (3-13); PLATELET COUNT 197 10^3/uL (150-450); RED BLOOD COUNT 3.91 10^6/uL (3.72-5.28); RED CELL DISTRIBUTION WIDTH 13.7 % (11.5-14.0); TOTAL CELLS COUNTED % (AUTO) 100 %
[2019-05-12 12:30] LABS: APPEARANCE,URINE SLIGHTLY-CLOUDY; BILIRUBIN,URINE NEGATIVE (NEGATIVE); COLOR,URINE YELLOW; GLUCOSE, URINE 50 mg/dL (NEGATIVE); KETONES,URINE TRACE mg/dL (NEGATIVE); LEUKOCYTE ESTERASE,URINE TRACE (NEGATIVE); NITRITE,URINE NEGATIVE (NEGATIVE); PROTEIN,URINE NEGATIVE (NEGATIVE); URINE SPECIFIC GRAVITY 1.028
[2019-05-12 12:31] LABS: ALBUMIN 3.8 g/dL (3.5-5.0); ALKALINE PHOSPHATASE 51 U/L (38-126); ANION GAP 8 (5-19); ASPARTATE AMINO TRANSFERASE 18 U/L (14-36); BILIRUBIN,TOTAL 0.3 mg/dL (0.2-1.3); BLOOD UREA NITROGEN 13 mg/dL (7-20); CALCIUM 8.9 mg/dL (8.4-10.2); CARBON DIOXIDE 28 mmol/L (22-30); CHLORIDE 105 mmol/L (98-107); GLUCOSE 158 mg/dL (75-110); POTASSIUM 3.4 mmol/L (3.6-5.0); TOTAL PROTEIN 6.4 g/dL (6.3-8.2)
[2019-05-12 12:41] LABS: ADD MANUAL MICROSCOPIC YES
[2019-05-12 12:42] LABS: RBC,URINE RARE /HPF
--- NOTE | 2019-05-12 14:21 | ER Document Report ---
ED General - General Chief Complaint: Doesn't Feel Right Stated Complaint: NOT FEELING WELL/NO MAIN COMPLAINT Time Seen by Provider: 05/12/19 11:41 Primary Care Provider: JUANCARLOS VILLALTA MD [Primary Care Provider] - Follow up as needed Mode of Arrival: Wheelchair Notes: RME NOTE: 48-year-old female presented to ED for feeling bad all over. She states she took her Depakote and Geodon about 8 and 1027 her daughter called stating that the patient was having side effects to the medicine she was twisted up and she felt very nauseated and not feeling very well she brought the patient to the emergency room. She states when this happened before they gave her Cogentin for side effects. She states she took 1 Cogentin and had to take a second 1 to resolve the symptoms.\\Came to the emergency room. She states she is feeling a lot better at this time. MY HPI: Patient states she was recently got out [facility]. States she has been on Depakote and Risperdal since 2006 but medications were changed while she was in [facility]. States she [facility] and restarted on her Depakote, Risperdal and Cogentin. States she took her Depakote and Risperdal for the first time today. States that at that time she feels as though her "tongue was twisting" and then a clenching of the left side of her jaw. States she did take a total of 2 mg of Cogentin and those symptoms have subsided. Upon my assessment patient is currently denying any complaints. Denies any clenching of her jaw, "twisting" of her tongue. She is denying any chest pain, shortness of breath, lightheadedness, dizziness, weakness. Patient is a past medical history of bipolar and schizoaffective disorder. TRAVEL OUTSIDE OF THE [place] IN LAST 30 DAYS: No - Related Data Allergies/Adverse Reactions: morphine Adverse Reaction (Verified 05/12/19 11:04) Hallucinations Past Medical History - General Information source: Patient - Social History Smoking Status: Current Every Day Smoker Chew tobacco use (# tins/day): No Frequency of alcohol use: None Drug Abuse: None Family History: Hypertension Patient has suicidal ideation: No Patient has homicidal ideation: No Renal/ Medical History: Denies: Hx Peritoneal Dialysis Psychiatric Medical History: Reports: Hx Bipolar Disorder, Hx Depression, Hx Schizoaffective Disorder, Hx Schizophrenia Past Surgical History: Reports: Hx Tubal Ligation - Immunizations Hx Diphtheria, Pertussis, Tetanus Vaccination: No Review of Systems - Review of Systems Constitutional: denies: Fever EENT: denies: Difficulty swallowing, Throat swelling, Mouth pain, Mouth swelling Cardiovascular: No symptoms reported Respiratory: No symptoms reported Gastrointestinal: No symptoms reported Genitourinary: No symptoms reported Female Genitourinary: No symptoms reported Musculoskeletal: See HPI Skin: No symptoms reported Hematologic/Lymphatic: No symptoms reported Neurological/Psychological: See HPI Physical Exam - Vital signs Vitals: Temp Pulse Resp BP Pulse Ox 98.8 F 100 18 109/61 94 05/12/19 11:06 05/12/19 11:06 05/12/19 11:06 05/12/19 11:06 05/12/19 11:06 - Notes Notes: GENERAL: Alert, interacts well. No acute distress. HEAD: Normocephalic, atraumatic. EYES: Pupils equal, round, and reactive to light. Extraocular movements intact. ENT: Oral mucosa moist, tongue midline. NECK: Full range of motion. Supple. Trachea midline. LUNGS: Clear to auscultation bilaterally, no wheezes, rales, or rhonchi. No respiratory distress. HEART: Regular rate and rhythm. No murmur ABDOMEN: Soft, non-tender. Non-distended. Bowel sounds present in all 4 quadrants. EXTREMITIES: Moves all 4 extremities spontaneously. No edema, normal radial and dorsalis pedis pulses bilaterally. No cyanosis. BACK: no cervical, thoracic, lumbar midline tenderness. No saddle anesthesia, normal distal neurovascular exam. NEUROLOGICAL: Alert and oriented x3. Normal speech. cranial nerves II through XII grossly intact PSYCH: Normal affect, normal mood. SKIN: Warm, dry, normal turgor. No rashes or lesions noted. Course - Re-evaluation Re-evalutation: 05/12/19 14:18 Upon my assessment patient is sleeping, easily arousable with verbal stimuli. P atient states she overall feels a lot better. Is denying any twisting of her tongue or any clenching of her jaw. I have discussed with her making sure she takes her Cogentin with her Risperdal. I also discussed that she should [facility]- [facility] today or tomorrow. Patient voices understanding. Her symptoms sound potentially like EPS. At this time will discharge with return precautions and follow-up recommendations. Verbal discharge instructions given a the bedside and opportunity for questions given. Medication warnings reviewed. Patient is in agreement with this plan and has verbalized understanding of return precautions and the need for primary care follow-up in the next 24-72 hours. This medical record was dictated with voice recognizing software. There may be grammatical, syntax errors that are unintended. 05/12/19 14:19 - Vital Signs Vital signs: Temp Pulse Resp BP Pulse Ox 98.8 F 100 18 109/61 94 05/12/19 11:06 05/12/19 11:06 05/12/19 11:06 05/12/19 11:06 05/12/19 11:06 - Laboratory Result Diagrams: 05/12/19 11:54 05/12/19 11:54 Laboratory results interpreted by me: 05/12/19 05/12/19 11:54 11:54 Potassium 3.4 L Glucose 158 H Urine Glucose (UA) 50 H Urine Ketones TRACE H Urine Urobilinogen 2.0 H Ur Leukocyte Esterase TRACE H Urine Ascorbic Acid 40 H Valproic Acid < 10.0 L Discharge - Discharge Clinical Impression: Adverse reaction to antidepressant drug Qualifiers: Encounter type: initial encounter Qualified Code(s): T43.205A - Adverse effect of unspecified antidepressants, initial encounter Condition: Stable Disposition: HOME, SELF-CARE Additional Instructions: As we discussed you have been seen and treated in the emergency department for an interaction with your Risperdal and Depakote. Please make sure when you take your Risperdal you are also taking her Cogentin at the same time. Please also make sure you follow-up [facility] later today or tomorrow. Please return to the e mergency room for any further concerns. Referrals: JUANCARLOS VILLALTA MD [Primary Care Provider] - Follow up as needed [facility] [Provider Group] - Follow up as needed
[2019-05-12 14:48] VITALS: BP 128/87
== END 2019-05-12 14:51 | disposition home or self-care (01) ==
LOC: ER 11:00
DX: R11.0 Nausea (principal); K14.9 Disease of tongue, unspecified; T43.205A Adverse effect of unspecified antidepressants, initial encounter; F17.200 Nicotine dependence, unspecified, uncomplicated; X58.XXXA Exposure to other specified factors, initial encounter; Z98.51 Tubal ligation status; Z88.6 Allergy status to analgesic agent
CPT/HCPCS: 36415; 80053; 80164; 81001; 85025; 99283

== ENCOUNTER 2019-11-21 02:37 | Emergency (ER) | payer MEDICAID ==
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
[2019-11-21 04:06] LABS: ABSOLUTE EOSINOPHILS # (AUTO) 0.2 10^3/uL (0.0-0.6); ABSOLUTE LYMPHOCYTES (AUTO) 2.8 10^3/uL (0.5-4.7); ABSOLUTE MONOCYTES (AUTO) 0.5 10^3/uL (0.1-1.4); ABSOLUTE NEUT (AUTO) 4.1 10^3/uL (1.7-8.2); BASOPHILS % (AUTO) 0.5 % (0-2); HEMATOCRIT 43.1 % (36.0-47.0); HEMOGLOBIN 14.9 g/dL (12.0-15.5); MEAN CORPUSCULAR HEMOGLOBIN 32.3 pg (27.0-33.4); TOTAL CELLS COUNTED % (AUTO) 100 %
[2019-11-21 04:10] LABS: EOSINOPHILS % (AUTO) 2.6 % (0-6); LYMPHOCYTES % (AUTO) 36.8 % (13-45); MEAN CORPUSCULAR HGB CONC 34.7 g/dL (32.0-36.0); MEAN CORPUSCULAR VOLUME 93 fl (80-97); MONOCYTES % (AUTO) 6.1 % (3-13); PLATELET COUNT 212 10^3/uL (150-450); RED BLOOD COUNT 4.63 10^6/uL (3.72-5.28); RED CELL DISTRIBUTION WIDTH 12.9 % (11.5-14.0); WHITE BLOOD COUNT 7.6 10^3/uL (4.0-10.5)
[2019-11-21 04:27] LABS: APPEARANCE,URINE SLIGHTLY-CLOUDY; BILIRUBIN,URINE NEGATIVE (NEGATIVE); COLOR,URINE YELLOW; GLUCOSE, URINE NEGATIVE (NEGATIVE); KETONES,URINE NEGATIVE (NEGATIVE); LEUKOCYTE ESTERASE,URINE NEGATIVE (NEGATIVE); NITRITE,URINE NEGATIVE (NEGATIVE); PROTEIN,URINE NEGATIVE (NEGATIVE); URINE SPECIFIC GRAVITY 1.012; UROBILINOGEN,URINE NEGATIVE mg/dL (<2.0)
[2019-11-21 04:29] LABS: ACETAMINOPHEN < 10 ug/mL (10-30); ALBUMIN 4.7 g/dL (3.5-5.0); ALCOHOL 84 mg/dL (NONE DETECTED); ALKALINE PHOSPHATASE 70 U/L (38-126); ANION GAP 14 (5-19); ASPARTATE AMINO TRANSFERASE 78 U/L (14-36); BILIRUBIN,DIRECT 0.2 mg/dL (0.0-0.4); BILIRUBIN,TOTAL 0.5 mg/dL (0.2-1.3); BLOOD UREA NITROGEN 11 mg/dL (7-20); CALCIUM 9.2 mg/dL (8.4-10.2); CARBON DIOXIDE 20 mmol/L (22-30); CHLORIDE 107 mmol/L (98-107); GLUCOSE 87 mg/dL (75-110); POTASSIUM 3.9 mmol/L (3.6-5.0); SALICYLATE < 1.0 mg/dL (2.0-20.0)
[2019-11-21 04:39] LABS: URINE AMPHETAMINES SCREEN NEGATIVE; URINE BARBITURATES SCREEN NEGATIVE; URINE BENZODIAZEPINES SCREEN NEGATIVE; URINE METHADONE SCREEN NEGATIVE; URINE PHENCYCLIDINE SCREEN NEGATIVE
[2019-11-21 04:40] LABS: URINE COCAINE SCREEN UNCONFIRMED POSITIVE; URINE MARIJUANA (THC) SCREEN UNCONFIRMED POSITIVE
--- NOTE | 2019-11-21 05:49 | EKG REPORT ---
SEVERITY:- ABNORMAL ECG - SINUS RHYTHM ABNRM R PROG, CONSIDER ASMI OR LEAD PLACEMENT : Confirmed by: Sharyn Trejo MD 21-Nov-2019 05:47:52
--- NOTE | 2019-11-21 10:01 | ER Document Report ---
Doctor's Note Notes: 11/21/19 10:00 Report received, chart reviewed, patient rounded on. Currently patient sleeping soundly no distress, will assess later when she is awake. Patient has been medically cleared waiting for psych dispel. 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 EMTALA completed. Patient is calm. Denies pain. She was instructed on transfer to [place] [facility]. She verbalized understanding. PHYSICAL EXAMINATION: GENERAL: Well-appearing and in no acute distress HEAD: Atraumatic, normocephalic. LUNGS: Respiratory rate even unlabored HEART: Regular rate and rhythm without murmurs EXTREMITIES: Normal range of motion PSYCH: calm SKIN: Warm, Dry
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
[2019-11-21 11:46] VITALS: BP 139/80
== END 2019-11-21 12:45 ==
LOC: ER 02:37
DX: F23 Brief psychotic disorder (principal); F10.10 Alcohol abuse, uncomplicated; F31.9 Bipolar disorder, unspecified; F17.200 Nicotine dependence, unspecified, uncomplicated; R45.851 Suicidal ideations; R45.850 Homicidal ideations; Z88.6 Allergy status to analgesic agent; Z98.51 Tubal ligation status
CPT/HCPCS: 36415; 80053; 80307; 81001; 85025; 93005; 93010; 99285

== ENCOUNTER 2019-12-01 21:04 | Emergency (ER) | payer MEDICAID, OTHER ==
--- NOTE | 2019-12-01 22:14 | RADIOLOGY REPORT (SQ) ---
EXAM DESCRIPTION: X-RAY CHEST 2 VIEWS CLINICAL HISTORY: 49 years, Female, chest tightness COMPARISON: None. FINDINGS: PA and lateral chest radiographs were performed. The lungs are well expanded and clear. The costophrenic sulci are sharp. The aortic arch is calcified. The cardiac silhouette, hilar regions, trachea, soft tissues and bony structures are unremarkable aside from degenerative changes. IMPRESSION: No acute cardiopulmonary disease.
[2019-12-01 22:30] LABS: ABSOLUTE BASOPHILS # (AUTO) 0.1 10^3/uL (0.0-0.2); ABSOLUTE EOSINOPHILS # (AUTO) 0.3 10^3/uL (0.0-0.6); ABSOLUTE LYMPHOCYTES (AUTO) 3.3 10^3/uL (0.5-4.7); ABSOLUTE MONOCYTES (AUTO) 0.4 10^3/uL (0.1-1.4); ABSOLUTE NEUT (AUTO) 2.2 10^3/uL (1.7-8.2); BASOPHILS % (AUTO) 1.1 % (0-2); EOSINOPHILS % (AUTO) 4.2 % (0-6); HEMATOCRIT 40.3 % (36.0-47.0); LYMPHOCYTES % (AUTO) 52.8 % (13-45); MEAN CORPUSCULAR HEMOGLOBIN 32.4 pg (27.0-33.4); MEAN CORPUSCULAR HGB CONC 34.7 g/dL (32.0-36.0); MEAN CORPUSCULAR VOLUME 93 fl (80-97); MONOCYTES % (AUTO) 6.4 % (3-13); PLATELET COUNT 226 10^3/uL (150-450); RED BLOOD COUNT 4.32 10^6/uL (3.72-5.28); RED CELL DISTRIBUTION WIDTH 13.2 % (11.5-14.0); SEGMENTED NEUTROPHILS % (AUTO) 35.5 % (42-78); TOTAL CELLS COUNTED % (AUTO) 100 %; WHITE BLOOD COUNT 6.3 10^3/uL (4.0-10.5)
[2019-12-01 22:48] LABS: ALBUMIN 4.1 g/dL (3.5-5.0); ALKALINE PHOSPHATASE 47 U/L (38-126); ANION GAP 7 (5-19); ASPARTATE AMINO TRANSFERASE 21 U/L (14-36); BILIRUBIN,DIRECT 0.2 mg/dL (0.0-0.4); BILIRUBIN,TOTAL 0.3 mg/dL (0.2-1.3); BLOOD UREA NITROGEN 4 mg/dL (7-20); CALCIUM 9.5 mg/dL (8.4-10.2); CARBON DIOXIDE 27 mmol/L (22-30); CHLORIDE 107 mmol/L (98-107); GLUCOSE 104 mg/dL (75-110); POTASSIUM 4.1 mmol/L (3.6-5.0); TOTAL PROTEIN 7.1 g/dL (6.3-8.2)
--- NOTE | 2019-12-01 23:32 | ER Document Report ---
ED General - General Chief Complaint: Blood Pressure Problem Stated Complaint: BLOOD PRESSURE Time Seen by Provider: 12/01/19 21:12 Primary Care Provider: JUANCARLOS VILLALTA MD [ACTIVE STAFF] - Follow up as needed Notes: 49-year-old female presents emergency department with several complaints. Patient states that her psychiatric medications were changed recently, states that last evening she started noticing that she had a twitching or chewing sensation on the left side of her face, states it felt quite similar to when she used to be on antipsychotics and she did not have Cogentin. Patient states that they did not give her Cogentin this time when they started her on Geodon and Depakote as well as propranolol. Patient states that it went away after 10 to 12 hours. Denies any other neurologic problems, denies any weakness or focal deficits. Patient also states that she was started on propranolol 20 mg 3 times a day yesterday, this morning while she was laying in bed around 3 AM she felt like she had a pressure equivalent to a 2-year-old laying on her chest and a fluttering sensation and shortness of breath. States this started around 3 AM, states that when she got up and walked around over around 8 AM the sensations completely resolved. Has not had this again. Patient denies any cardiac histo ry. TRAVEL OUTSIDE OF THE [place] IN LAST 30 DAYS: No - Related Data Allergies/Adverse Reactions: morphine Adverse Reaction (Verified 11/21/19 02:49) Hallucinations Home Medications: divalproex er 500mg bid. propranolol 20mg 3xday. [id number] bid Past Medical History - General Information source: Patient - Social History Smoking Status: Current Every Day Smoker Chew tobacco use (# tins/day): No Frequency of alcohol use: None Drug Abuse: None Family History: Hypertension Patient has suicidal ideation: No Patient has homicidal ideation: No Renal/ Medical History: Denies: Hx Peritoneal Dialysis Psychiatric Medical History: Reports: Hx Bipolar Disorder, Hx Depression, Hx Schizoaffective Disorder, Hx Schizophrenia Past Surgical History: Reports: Hx Tubal Ligation - Immunizations Hx Diphtheria, Pertussis, Tetanus Vaccination: No Review of Systems - Review of Systems Constitutional: No symptoms reported EENT: See HPI - Face twitching. Cardiovascular: See HPI, Chest pain, Palpitations, Heart racing Respiratory: See HPI, Short of breath. denies: Cough, Hurts to breathe Gastrointestinal: No symptoms reported Neurological/Psychological: See HPI - Spasming and chewing motions of the left side of her face. -: Yes All other systems reviewed and negative Physical Exam - Vital signs Vitals: Temp Pulse Resp BP Pulse Ox 97.9 F 92 20 131/80 H 99 12/01/19 21:12 12/01/19 21:12 12/01/19 21:12 12/01/19 21:12 12/01/19 21:12 Interpretation: Normal - Notes Notes: GENERAL: Alert, interacts well. No acute distress. HEAD: Normocephalic, atraumatic EYES: Pupils equal, round and reactive to light, extraocular movements intact. ENT: Oral mucosa moist, tongue midline. NECK: Full range of motion, supple, trachea midline. LUNGS: Clear to auscultation bilaterally, no wheezes, rales or rhonchi, no respiratory distress. HEART: Regular rate and rhythm, no murmurs, gallops, rubs. ABDOMEN: Soft, nontender, nondistended, bowel sounds present in all 4 quadrants. EXTREMITIES: Moves all 4 extremities spontaneously, no edema, radial and dorsalis pedis pulses 2/4 bilaterally. No cyanosis. NEUROLOGICAL: Alert and oriented x3, normal speech, cranial nerves II through XII grossly intact, biceps and patellar DTRs 2+ bilaterally. PSYCH: Normal mood, normal affect. SKIN: Warm, Dry, normal turgor, no rashes or lesions noted. Course - Re-evaluation Re-evalutation: 12/02/19 00:04 CBC unremarkable, CMP unremarkable, troponin negative after patient had chest pain constantly from 3 AM until 8 AM. No need for repeat troponin. Chest x-ray unremarkable, EKG is nonischemic. Given the fact that the patient felt like she had a pressure on her chest and her heart was racing until she got up and walked around I suspect this is more related to anxiety than acute coronary syndrome. Patient was left on the monitor the whole time, patient never had any tachycardia or ectopy. Patient had no recurrence of her symptoms. Patient also perfectly describes medication related dystonic reaction, I am happy to prescribe Cogentin like she usually takes when she is on her antipsychotics. Patient will be discharged home. - Vital Signs Vital signs: Temp Pulse Resp BP Pulse Ox 97.9 F 92 18 131/80 H 99 12/01/19 21:12 12/01/19 21:12 12/01/19 21:26 12/01/19 21:12 12/01/19 21:26 - Laboratory Result Diagrams: 12/01/19 22:15 12/01/19 22:15 Laboratory results interpreted by me: 12/01/19 12/01/19 22:15 22:15 Lymph % (Auto) 52.8 H Seg Neutrophils % 35.5 L BUN 4 L - EKG Interpretation by Me Additional EKG results interpreted by me: 12/02/19 00:05 EKG shows sinus rhythm at a rate of 79, first-degree AV block, normal axis, rapid R wave progression, no ST segment elevations or depressions, no T wave inversions per my interpretation. Discharge - Discharge Clinical Impression: Dystonic drug reaction, Chest pain with low risk for cardiac etiology Condition: Stable Disposition: HOME, SELF-CARE Additional Instructions: Today there is no evidence of heart attack. I actually suspect your symptoms were coming from anxiety however if you have them again please return to the emergency department. Please continue taking your medications as directed. Do not stop taking the propranolol. Please take the Cogentin once a day to help prevent the face twisting symptoms that you described. I agree with you that this is likely a reaction to your new medications. Please return to the emergency department for any new or concerning symptoms. Prescriptions: Benztropine Mesylate [Cogentin 1 mg Tablet] 1 tab PO DAILY #30 tab Referrals: JUANCARLOS VILLALTA MD [ACTIVE STAFF] - Follow up as needed
[2019-12-02 00:23] VITALS: BP 98/58
--- NOTE | 2019-12-02 16:52 | EKG REPORT ---
SEVERITY:- BORDERLINE ECG - SINUS RHYTHM BORDERLINE T WAVE ABNORMALITIES : Confirmed by: Geovanna Daniel 02-Dec-2019 16:51:55
== END 2019-12-02 00:36 | disposition home or self-care (01) ==
LOC: ER 21:04
DX: G24.09 Other drug induced dystonia (principal); T50.905A Adverse effect of unspecified drugs, medicaments and biological substances, initial encounter; R06.02 Shortness of breath; R07.89 Other chest pain; F17.200 Nicotine dependence, unspecified, uncomplicated; F31.9 Bipolar disorder, unspecified; F25.9 Schizoaffective disorder, unspecified; Z79.899 Other long term (current) drug therapy
CPT/HCPCS: 36415; 71046; 80053; 84484; 85025; 93005; 93010; 99285

== ENCOUNTER 2019-12-21 18:08 | Emergency (ER) | payer MEDICAID ==
--- NOTE | 2019-12-21 18:46 | EKG REPORT ---
SEVERITY:- NORMAL ECG - SINUS RHYTHM : Confirmed by: Geovanna Daniel 21-Dec-2019 18:46:10
[2019-12-21] MEDS ORDERED: ASPIRIN 81 MG TABLET, CHEWABLE PO ONE (19:24)
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
--- NOTE | 2019-12-21 19:47 | RADIOLOGY REPORT (SQ) ---
EXAM DESCRIPTION: CHEST 2 VIEWS IMAGES COMPLETED DATE/TIME: 12/21/2019 7:37 pm REASON FOR STUDY: Chest pain COMPARISON: 12/01/2019 EXAM PARAMETERS: NUMBER OF VIEWS: two views TECHNIQUE: Digital Frontal and Lateral radiographic views of the chest acquired. RADIATION DOSE: NA LIMITATIONS: none FINDINGS: LUNGS AND PLEURA: No opacities, masses or pneumothorax. No pleural effusion. MEDIASTINUM AND HILAR STRUCTURES: No masses or contour abnormalities. HEART AND VASCULAR STRUCTURES: Heart normal size. No evidence for failure. BONES: No acute findings. HARDWARE: None in the chest. OTHER: No other significant finding. IMPRESSION: 1. No significant interval changes since the prior examination dated 12/01/2019. No acut e finding. TECHNICAL DOCUMENTATION: JOB ID: [id number] 2010 [employer]- All Rights Reserved Reading location - IP/workstation name: [email or web address]
[2019-12-21 20:01] LABS: ABSOLUTE BASOPHILS # (AUTO) 0.1 10^3/uL (0.0-0.2); ABSOLUTE EOSINOPHILS # (AUTO) 0.1 10^3/uL (0.0-0.6); ABSOLUTE LYMPHOCYTES (AUTO) 2.9 10^3/uL (0.5-4.7); ABSOLUTE MONOCYTES (AUTO) 0.6 10^3/uL (0.1-1.4); ABSOLUTE NEUT (AUTO) 5.8 10^3/uL (1.7-8.2); BASOPHILS % (AUTO) 0.6 % (0-2); EOSINOPHILS % (AUTO) 1.3 % (0-6); HEMATOCRIT 43.7 % (36.0-47.0); HEMOGLOBIN 14.9 g/dL (12.0-15.5); LYMPHOCYTES % (AUTO) 30.8 % (13-45); MEAN CORPUSCULAR HEMOGLOBIN 32.1 pg (27.0-33.4); MEAN CORPUSCULAR HGB CONC 34.2 g/dL (32.0-36.0); MEAN CORPUSCULAR VOLUME 94 fl (80-97); MONOCYTES % (AUTO) 5.9 % (3-13); PLATELET COUNT 223 10^3/uL (150-450); RED BLOOD COUNT 4.65 10^6/uL (3.72-5.28); RED CELL DISTRIBUTION WIDTH 12.9 % (11.5-14.0); SEGMENTED NEUTROPHILS % (AUTO) 61.4 % (42-78); TOTAL CELLS COUNTED % (AUTO) 100 %; WHITE BLOOD COUNT 9.5 10^3/uL (4.0-10.5)
[2019-12-21 20:20] LABS: ALBUMIN 4.8 g/dL (3.5-5.0); ALKALINE PHOSPHATASE 48 U/L (38-126); ANION GAP 11 (5-19); ASPARTATE AMINO TRANSFERASE 27 U/L (14-36); BILIRUBIN,DIRECT 0.1 mg/dL (0.0-0.4); BILIRUBIN,TOTAL 0.4 mg/dL (0.2-1.3); BLOOD UREA NITROGEN 19 mg/dL (7-20); CALCIUM 9.7 mg/dL (8.4-10.2); CARBON DIOXIDE 23 mmol/L (22-30); CHLORIDE 103 mmol/L (98-107); GLUCOSE 101 mg/dL (75-110); POTASSIUM 3.9 mmol/L (3.6-5.0); TOTAL PROTEIN 7.7 g/dL (6.3-8.2)
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
[2019-12-21 22:43] VITALS: BP 111/76
== END 2019-12-21 23:04 | disposition home or self-care (01) ==
LOC: ER 18:08
DX: R07.9 Chest pain, unspecified (principal); F41.9 Anxiety disorder, unspecified; R51 Headache; R42 Dizziness and giddiness; Z59.0 Homelessness; F20.9 Schizophrenia, unspecified; F32.9 Major depressive disorder, single episode, unspecified; R06.02 Shortness of breath; Z88.8 Allergy status to other drugs, medicaments and biological substances
CPT/HCPCS: 36415; 71046; 80053; 84484; 85025; 93005; 93010; 99284